=== PATIENT | female | born 1950 | race Caucasian/White ===

== ENCOUNTER → 2017-06-26 11:56 | Outpatient (REF) | payer MEDICARE, MEDICAID, SELFPAY ==
[2017-06-26 18:18] LABS: Albumin Level 3.8 gm/dL (3.4-5.0); Blood Urea Nitrogen 18 mg/dL (7-18); Calcium 9.1 mg/dL (8.5-10.1); Carbon Dioxide 30 mmol/L (21.0-32.0); Chloride 103 mmol/L (98-107); Creatinine,Serum 1.24 mg/dL (0.55-1.02); Estimated Glomerular Filt Rate 43 ml/min (>60); GFR (African American) 52 ML/MIN (>60); Glucose 140 mg/dL (74-106)
[2017-06-26 18:30] LABS: Basophils # 0.1 K/mm3 (0-0.2); Basophils % 0.8 % (0.1-2.0); Eosinophils # 0.2 K/mm3 (0.0-0.4); Eosinophils % 2.5 % (0.1-12.0); Hematocrit 44.7 % (37.0-47.0); Hemoglobin 13.8 g/dL (12.2-16.2); Lymphocytes # 2.5 K/mm3 (0.7-4.5); Mean Corpuscular HGB Conc 30.8 g/dL (31.8-35.4); Mean Corpuscular Hemoglobin 30.1 pg (27.0-31.2); Mean Corpuscular Volume 97.6 fl (81-99); Mean Platelet Volume 10.4 fl (7.4-10.4); Monocytes # 0.5 K/mm3 (0.1-1.0); Monocytes % 6.1 % (1.7-9.3); Neutrophils # 5.3 K/mm3 (1.8-7.8); Neutrophils % 61.5 % (37.0-80.0); Platelet Count 336 K/mm3 (142-424); Red Blood Count 4.58 M/mm3 (4.20-5.40); Red Cell Distribution Width 13.5 % (11.5-17.5); White Blood Count 8.6 K/mm3 (4.8-10.8)
[2017-06-26 19:06] LABS: Alanine Aminotransferase 28 U/L (12-78); Albumin/Globulin Ratio 1.1 (1.1-1.8); Alkaline Phosphatase 125 U/L (46-116); Anion Gap 11.2 mEq/L (5-15); Bilirubin,Total 0.3 mg/dL (0.2-1.0); Free T4 (Free Thyroxine) 0.78 ng/dl (0.76-1.46); Globulin 3.6 gm/dl (1.3-3.2); Sodium 140 mmol/L (136-145); Thyroid Stimulating Hormone 1.99 uIU/ml (0.358-3.740); Total Protein,Serum 7.4 gm/dL (6.4-8.2)
[2017-06-26 19:08] LABS: Aspartate Amino Transferase 20 U/L (15-37); Potassium 4.2 mmoL/L (3.5-5.1)
== END ==
LOC: LAB 11:56
PROVIDERS: Visit Provider Emergency Medicine
DX: N39.0 Urinary tract infection, site not specified (principal); F41.9 Anxiety disorder, unspecified
CPT/HCPCS: 80053; 84439; 84443; 85025; 87086

== ENCOUNTER → 2017-07-17 15:59 | Outpatient (CLI) | payer MEDICARE, MEDICAID, SELFPAY | PROVIDERS: Visit Provider Nurse Practitioner Family | DX: N39.0 Urinary tract infection, site not specified (principal) | CPT/HCPCS: 87086 ==

== ENCOUNTER → 2017-08-04 08:27 | Outpatient (CLI) | payer MEDICARE, MEDICAID, SELFPAY ==
--- NOTE | 2017-08-04 08:27 | XR_ITS ---
XR foot wt bearing RT 3V HISTORY: ITS.REASON: foot pain ORDERING PHYSICIAN: Ev Rae DPM PATIENT AGE: 66 years COMPARISON: 12/08/2016 FINDINGS: No fracture or dislocation. No lytic or blastic change. There is normal mineralization.. There are mild osteoarthritic changes of the first metatarsophalangeal joint. This is not significant changed. There is a small calcaneal spur . Previously there was decreased density at the tip of the spur which is improved on today's exam. There is normal alignment IMPRESSION: Mild osteoarthritis at the first metatarsophalangeal joint.
--- NOTE | 2017-08-04 08:27 | XR_ITS ---
XR foot wt bearing LT 3V HISTORY: Follow-up surgery, foot pain ITS.REASON: foot pain ORDERING PHYSICIAN: Ev Rae DPM PATIENT AGE: 66 years COMPARISON: 12/08/2016 FINDINGS: There is been prior osteotomy at the first metatarsophalangeal joint with joint replacement at the first metatarsophalangeal joint. There remains good alignment. There is bandage artifact present. No acute fracture or dislocation. No lytic or blastic change. IMPRESSION: Overall no change status post first metatarsophalangeal joint replacement with osteotomy.
== END ==
PROVIDERS: Visit Provider Podiatrist
DX: M79.673 Pain in unspecified foot (principal)
CPT/HCPCS: 73630

== ENCOUNTER → 2017-09-03 09:00 | Outpatient (CLI) | payer MEDICARE, MEDICAID, SELFPAY ==
--- NOTE | 2017-09-03 09:27 | NVE_ITS ---
Venous Exam Indications: 729.5 Pain in limb. IMPRESSIONS 1. There is no evidence of significant Reflux. 2. No evidence of deep or superficial vein thrombosis involving the left lower extremity History: Left lower extremity pain. Swelling of the left lower extremity. Risk factors: Hypertension. Obese. Patient states no recent trauma. Broke left hallux 4 years ago resulting in surgery. Has had pain there since. Todays pain radiates up the entire leg to include the thigh. Left lower extremity venous duplex evaluation. Doppler flow study including spectral analysis, color and morton scale imaging. Location: Vascular laboratory. Patient status: Outpatient. CRITICAL FINDINGS - Reported to: [facility] - Read back and verified. - 09/03/17 - 9:50 - LLE negative for DVT or SVT Tables: Venous flow and imaging: + +-------+ + Location Overall Flow properties + +-------+ + Left common femoral Patent Normal phasicity; spontaneous; normal augmentation; compressible + +-------+ + Left saphenofemoral junction Patent Compressible + +-------+ + Left profunda femoral Patent Compressible + +-------+ + Left femoral Patent Normal phasicity; spontaneous; normal augmentation; compressible + +-------+ + Left greater saphenous Patent Normal phasicity; spontaneous; normal augmentation; compressible + +-------+ + Left popliteal Patent Normal phasicity; spontaneous; normal augmentation; compressible + +-------+ + Left posterior tibial Patent Compressible + +-------+ + Left peroneal Patent Compressible + +-------+ + Left gastrocnemius Patent Compressible + +-------+ + Left soleal Patent Compressible + +-------+ + (Report amended ) Electronically signed by: Samy Tadeo [id number]
[2017-09-03 18:57] LABS: Basophils # 0.1 K/mm3 (0-0.2); Basophils % 1.2 % (0.1-2.0); Eosinophils # 0.2 K/mm3 (0.0-0.4); Eosinophils % 2.8 % (0.1-12.0); Hematocrit 46.8 % (37.0-47.0); Hemoglobin 14.1 g/dL (12.2-16.2); Lymphocytes % 30.3 K/mm3 (10-50); Mean Corpuscular HGB Conc 30.1 g/dL (31.8-35.4); Mean Corpuscular Hemoglobin 29.4 pg (27.0-31.2); Mean Corpuscular Volume 97.6 fl (81-99); Monocytes # 0.4 K/mm3 (0.1-1.0); Neutrophils % 59.5 % (37.0-80.0); Platelet Count 317 K/mm3 (142-424); Red Cell Distribution Width 12.9 % (11.5-17.5); White Blood Count 6.7 K/mm3 (4.8-10.8)
[2017-09-03 19:04] LABS: Alanine Aminotransferase 25 U/L (12-78); Albumin Level 3.9 gm/dL (3.4-5.0); Albumin/Globulin Ratio 1.1 (1.1-1.8); Alkaline Phosphatase 111 U/L (46-116); Anion Gap 12.2 mEq/L (5-15); Aspartate Amino Transferase 17 U/L (15-37); Bilirubin,Total 0.6 mg/dL (0.2-1.0); Blood Urea Nitrogen 16 mg/dL (7-18); Calcium 9.5 mg/dL (8.5-10.1); Carbon Dioxide 32 mmol/L (21.0-32.0); Chloride 102 mmol/L (98-107); Chol/HDL Ratio 4.2 (1-3.5); Cholesterol 214 mg/dL (140-200); Creatinine,Serum 0.96 mg/dL (0.55-1.02); Estimated Glomerular Filt Rate 58 ml/min (>60); Free T4 (Free Thyroxine) 0.84 ng/dl (0.76-1.46); GFR (African American) 70 ML/MIN (>60); Globulin 3.5 gm/dl (1.3-3.2); Glucose 133 mg/dL (74-106); HDL Cholesterol 51 mg/dL (29-89); LDL Cholesterol 84 mg/dL (0-130); Potassium 4.2 mmoL/L (3.5-5.1); Sodium 142 mmol/L (136-145); Thyroid Stimulating Hormone 2.38 uIU/ml (0.358-3.740); Total Protein,Serum 7.4 gm/dL (6.4-8.2); Triglycerides 393 mg/dL (30-200); VLDL Cholesterol 79 mg/dL (0-40)
[2017-09-07 10:12] LABS: Neisseria gonorrhoeae, NAA Negative
[2017-09-07 10:20] LABS: HIV Screen 4th Generation wRfx Non-reactive
[2017-09-07 10:22] LABS: Hep A Ab, IgM Negative; Hepatitis B Surface Antigen Negative
[2017-09-07 10:23] LABS: Hepatitis B Core Antibody IgM Negative
[2017-09-07 10:25] LABS: Hepatitis C Antibody 0.8
[2017-09-07 10:26] LABS: Rapid Plasma Reagin Ab Titer Non-Reactive
== END ==
PROVIDERS: Nurse Practitioner Family; PCP Emergency Medicine; Visit Provider Podiatrist
DX: R53.83 Other fatigue (principal); M54.2 Cervicalgia; I10 Essential (primary) hypertension; F41.9 Anxiety disorder, unspecified; N76.0 Acute vaginitis; M79.662 Pain in left lower leg; Z11.4 Encounter for screening for human immunodeficiency virus [HIV]
CPT/HCPCS: 80053; 80061; 80074; 82652; 84439; 84443; 85025; 86592; 86695; 86703; 86790; 87086; 87491; 87591; 93971; G0432

== ENCOUNTER → 2017-09-03 10:35 | Outpatient (CLI) | payer MEDICARE, MEDICAID, SELFPAY | PROVIDERS: Visit Provider Nurse Practitioner Family | DX: N76.0 Acute vaginitis (principal) | CPT/HCPCS: 80053; 80061; 80074; 82652; 84439; 84443; 85025; 86592; 86695; 86703; 86790; 87086; 87491; 87591; G0432 ==

== ENCOUNTER → 2018-04-13 09:34 | Outpatient (CLI) | payer MEDICARE, MEDICAID, SELFPAY ==
--- NOTE | 2018-04-13 10:40 | CA_ITS ---
PROCEDURE: 2-D M-mode and color Doppler study INDICATIONS FOR THE TEST: Chest pain+ COPD Heart Murmur Tobacco Smoking Palpitations Fatigue Syncope Edema+ Hypertension Diabetes Mellitus Rheumatic Fever SOB+ZAMORA+Obesity+Hyperlipidemia+ Family History HD Additional History CP PATIENT INFORMATION HEIGHT: 63 WEIGHT:208 GENDER: Female B/P:153/100 2-D/M-MODE INTERPRETATION: 2-D MEASUREMENTS OBSERVED VALUES IN CMS Right Ventricular Dimension (RVDd) 1.9 Interventricular Septum (Thickness)(IVsd) 1.4 Left Ventricular Internal Dimensions(LVIDd) 5.7 Left Ventricular Posterior Wall (Thickness)(LVPWd) 0.8 Aortic Root 3.0 Aortic Cusp Separation 1.9 Left Atrial Dimensions (LAD) 4.2 2D 1. Left atrium is mildly enlarged, left ventricle is normal size, mild concentric left ventricular hypertrophy, visually estimated ejection fraction of 55% with no regional wall motion abnormality. 2. The right atrium and right ventricle are normal size and contractility. 3. The aortic valve is thickened and calcified leaflet continue to display mobility. 4. The mitral and tricuspid valve leaflets are minimally thickened. 5. The pulmonic valve is poorly visualized. 6. No significant pericardial effusion noted. DOPPLER INTERROGATION: Doppler interrogation of the aortic, mitral and tricuspid valvular presence of mild mitral and tricuspid regurgitation, tricuspid regurgitation jet velocity is inadequate for calculation of the right ventricular systolic pressure, grade 1 diastolic dysfunction seen with tissue Doppler evidence of raised left atrial pressure. CONCLUSION: 1. Mildly enlarged left atrium, normal left ventricular size, mild concentric left ventricular hypertrophy, visually estimated ejection fraction 55% with no regional wall motion abnormality, grade 1 diastolic dysfunction seen with tissue Doppler evidence of raised left atrial pressure. 2. Mild mitral and tricuspid regurgitation 3. No significant pericardial effusion noted.
== END ==
PROVIDERS: PCP Emergency Medicine; Visit Provider Internal Medicine Cardiovascular Disease
DX: R06.09 Other forms of dyspnea; I10 Essential (primary) hypertension; E78.5 Hyperlipidemia, unspecified; Z82.49 Family history of ischemic heart disease and other diseases of the circulatory system
CPT/HCPCS: 93306

== ENCOUNTER → 2018-04-19 06:21 | Outpatient (CLI) | payer MEDICARE, MEDICAID, SELFPAY ==
--- NOTE | 2018-04-19 06:23 | NM_ITS ---
History and Indications: Hypertension, hyperlipidemia, family history, chest pain and shortness of breath Procedure: Patient received a 0.4 mg of intravenous Lexiscan, resting heart rate was 63 bpm resting blood pressure 163/95, Lexiscan maximum heart rate achieved was 103 bpm which is less than 85% of the maximum predicted heart rate and a blood pressure was 146/77. With Lexiscan patient complained of chest pain. Electrocardiogram: Resting echocardiogram showed sinus rhythm nonspecific ST-T changes, with Lexiscan there is less than 1.[address] segment depression noted from the baseline EKG. The EKG portion of the Lexiscan Myoview is nondiagnostic. Cardiac stress and resting SPECT images: Cardiac stress and resting SPECT images were obtained using technetium 99 Myoview 31.3 mCi stress and 10.4 mCi at rest. Gated SPECT further analysis of segmental wall motion and calculation of the ejection fraction also done. Cardiac stress and rest SPECT images show a mild fixed defect in the anterior wall with normal contractility in the gated SPECT is likely secondary to soft tissue attenuation, no reversible ischemia seen. Computer derived ejection fraction is over 65 percent with no regional wall motion abnormality, right ventricle is normal size and contractility. Conclusion: 1. The EKG portion of the Lexiscan Myoview is nondiagnostic. 2. No scintigraphic evidence of reversible ischemia seen, computer derived ejection fraction is 65% with no regional wall motion abnormality, right ventricle is normal size and contractility. 3. Normal Lexiscan Myoview study.
--- NOTE | 2018-04-19 07:44 | HMH.ITSHM ---
Current Home Medications as stated by this patient Gabrielle Sepulveda or advertising sales representative. []GABAPENTIN OXYCODONE OMEPRAZOLE METOPROLOL LOSARTAN LORATADINE NASAL SPRAY BUPROPION ATORVASTATIN
== END ==
PROVIDERS: PCP Emergency Medicine; Visit Provider Internal Medicine Cardiovascular Disease
DX: E78.5 Hyperlipidemia, unspecified (principal); G47.9 Sleep disorder, unspecified; I10 Essential (primary) hypertension; M79.601 Pain in right arm; M79.602 Pain in left arm; R06.00 Dyspnea, unspecified; R06.83 Snoring; R40.0 Somnolence; R60.9 Edema, unspecified; Z82.49 Family history of ischemic heart disease and other diseases of the circulatory system; Z87.891 Personal history of nicotine dependence; R07.9 Chest pain, unspecified
CPT/HCPCS: 78452; 93017; A9502; J2785

== ENCOUNTER → 2018-12-06 11:27 | Outpatient (CLI) | payer MEDICARE, MEDICAID, SELFPAY ==
--- NOTE | 2018-12-06 11:31 | XR_ITS ---
PROCEDURE: XR CHEST 2V CLINICAL HISTORY: cough COMPARISON: CXR CHEST(2 VIEWS-NOT PORTABLE) from 12/04/2015 CXR CHEST(2 VIEWS-NOT PORTABLE) from 09/24/2016 FINDINGS: The cardiomediastinal silhouette and pulmonary vascularity are within normal limits. The lungs are clear without infiltrates, suspicious nodules, or pleural effusions. No acute bony abnormalities. IMPRESSION: No acute findings. Dictated by: Samy Tadeo MD 12/06/2018 12:42 Electronically signed by Samy Tadeo MD in [place] 12/06/2018 12:42
== END ==
PROVIDERS: PCP Emergency Medicine; Visit Provider Nurse Practitioner Family
DX: R05 Cough (principal); R06.2 Wheezing; R09.89 Other specified symptoms and signs involving the circulatory and respiratory systems
CPT/HCPCS: 71046

== ENCOUNTER → 2019-02-14 17:09 | Outpatient (CLI) | payer MEDICARE, MEDICAID, SELFPAY ==
[2019-02-14 17:59] LABS: Basophils # 0.1 K/mm3 (0-0.2); Basophils % 1.1 % (0.1-2.0); Eosinophils # 0.2 K/mm3 (0.0-0.4); Eosinophils % 3.1 % (0.1-12.0); Hematocrit 45.5 % (37.0-47.0); Hemoglobin 14.3 g/dL (12.2-16.2); Lymphocytes # 2.3 K/mm3 (0.7-4.5); Lymphocytes % 29.8 % (10-50); Mean Corpuscular HGB Conc 31.4 g/dL (31.8-35.4); Mean Corpuscular Hemoglobin 31.1 pg (27.0-31.2); Mean Corpuscular Volume 98.8 fl (81-99); Mean Platelet Volume 9.5 fl (7.4-10.4); Monocytes # 0.5 K/mm3 (0.1-1.0); Monocytes % 6.3 % (1.7-9.3); Neutrophils # 4.5 K/mm3 (1.8-7.8); Neutrophils % 59.7 % (37.0-80.0); Platelet Count 328 K/mm3 (142-424); Red Cell Distribution Width 13.6 % (11.5-17.5); White Blood Count 7.5 K/mm3 (4.8-10.8)
[2019-02-14 18:28] LABS: Alanine Aminotransferase 21 U/L (12-78); Albumin Level 3.9 gm/dL (3.4-5.0); Albumin/Globulin Ratio 1.1 (1.1-1.8); Alkaline Phosphatase 116 U/L (46-116); Anion Gap 12.6 mEq/L (5-15); Aspartate Amino Transferase 15 U/L (15-37); Bilirubin,Total 0.3 mg/dL (0.2-1.0); Blood Urea Nitrogen 12 mg/dL (7-18); Calcium 8.9 mg/dL (8.5-10.1); Carbon Dioxide 26 mmol/L (21.0-32.0); Chloride 104 mmol/L (98-107); Chol/HDL Ratio 3.7 (1-3.5); Cholesterol 266 mg/dL (140-200); Estimated Glomerular Filt Rate 49 ml/min (>60); GFR (African American) 60 ML/MIN (>60); Globulin 3.4 gm/dl (1.3-3.2); Glucose 118 mg/dL (74-106); HDL Cholesterol 72 mg/dL (29-89); LDL Cholesterol 137 mg/dL (0-130); Potassium 3.6 mmoL/L (3.5-5.1); Sodium 139 mmol/L (136-145); T4 (Thyroxine) 7.9 ug/dl (4.7-13.3); Thyroid Stimulating Hormone 1.53 uIU/ml (0.358-3.740); Total Protein,Serum 7.3 gm/dL (6.4-8.2); Triglycerides 286 mg/dL (30-200); VLDL Cholesterol 57 mg/dL (0-40)
[2019-02-14 21:55] LABS: Hemoglobin A1C 6.1 % (0.0-7.0)
[2019-02-16 11:45] LABS: Vitamin D 25 Hydroxy 10.3 ng/mL (30.0-100.0)
== END ==
PROVIDERS: Visit Provider Emergency Medicine
DX: M54.9 Dorsalgia, unspecified (principal); R68.2 Dry mouth, unspecified; F41.9 Anxiety disorder, unspecified; I10 Essential (primary) hypertension; E11.9 Type 2 diabetes mellitus without complications; E55.9 Vitamin D deficiency, unspecified
CPT/HCPCS: 80053; 80061; 82652; 83036; 84436; 84443; 85025

== ENCOUNTER → 2019-04-04 16:56 | Outpatient (CLI) | payer MEDICARE, MEDICAID, SELFPAY ==
[2019-04-04 18:01] LABS: Amphetamine/Metha Screen,Urine Negative ng/mL (<1000); Barbiturates Screen,Urine Negative ng/mL (<200); Benzodiazepines Screen,Urine Negative ng/mL (<200); Cannabinoid Screen,Urine Negative ng/mL (<50); Cocaine Screen,Urine Negative ng/mL (<300); Methadone Screen,Urine Negative ng/mL (<300); Opiate Screen,Urine Positive ng/mL (<300); Phencyclidine Screen,Urine Negative ng/mL (<25)
[2019-04-11 09:37] LABS: Oxycodone (GC/MS) 1672 ng/mL (Cutoff=100)
[2019-04-13 17:35] LABS: Opiates Negative (Cutoff=100); Oxymorphone (GC/MS) 2436 ng/mL (Cutoff=100)
== END ==
PROVIDERS: Visit Provider Emergency Medicine
DX: M54.16 Radiculopathy, lumbar region (principal); Z79.899 Other long term (current) drug therapy
CPT/HCPCS: 80305; 80361; 80365; G0480

== ENCOUNTER → 2019-04-27 09:01 | Outpatient (CLI) | payer MEDICARE, MEDICAID, SELFPAY ==
--- NOTE | 2019-04-27 09:01 | MM_ITS ---
PROCEDURE: MM DIG SCREENING MAMM BI W/CAD CLINICAL INDICATION: screening There is a history of breast cancer patient's 2 sisters. COMPARISON: DIG MAMMO BILAT SCREENING from 10/15/2011 DIG MAMMO BILAT SCREENING from 05/05/2013 [facility] DIG MAMM-SCREEN MARY from 07/30/2015 TECHNIQUE: Standard CC and MLO images and 3D Tomosynthesis was obtained. R2 CAD reviewed. FINDINGS: The breasts are composed primarily of fat with minimal scattered fibroglandular densities in the subareolar regions bilaterally. There are few scattered benign-appearing microcalcifications in each breast. Jerry images were reviewed showing no suspicious abnormality. There are no suspicious microcalcifications. IMPRESSION: Fibrofatty parenchyma with no suspicious lesions seen BI-RAD Category: 2 Benign Finding(s) FOLLOW-UP: 1YR 1 Year Follow-up (A letter has been sent to the patient regarding results of the study.) Dictated by: Dr. Uriel Ngo MD 04/29/2019 08:[address] Uriel Ngo MD in [place] 04/29/2019 08:54
== END ==
PROVIDERS: PCP Emergency Medicine; Visit Provider Emergency Medicine
DX: Z12.31 Encounter for screening mammogram for malignant neoplasm of breast (principal)
CPT/HCPCS: 77063; 77067

== ENCOUNTER → 2019-06-10 09:18 | Outpatient (CLI) | payer MEDICARE, MEDICAID, SELFPAY ==
--- NOTE | 2019-06-10 09:18 | MR_ITS ---
PROCEDURE: MR LUMBAR SPINE WO CON CLINICAL INDICATION: back pain Low back pain, left leg pain, bilateral feet numbness and burning COMPARISON: LIAISON ENGINEER/O MRI-L-SPINE W/O from 06/22/2015 TECHNIQUE: Standard multiplanar multiecho sequences are performed without contrast. 3-D MIP and myelographic images are also rendered and reviewed FINDINGS: There is normal alignment. The spinal cord ends at the T12 level. There is a small left paracentral/foraminal disc protrusion at T11-T12 with minimal foraminal narrowing. No cord impingement. T12-L1, L1-L2 have an unremarkable appearance. L2-L3: Minimal bulging disc with mild facet and ligamentum hypertrophy with mild bilateral lateral recess narrowing not significantly changed. L3-L4: Mild facet ligamentum hypertrophy with mild bilateral lateral recess narrowing unchanged. L4-5: Unremarkable. L5-S1: Unremarkable. IMPRESSION: 1. Overall no significant change from 06/22/2015. 2. Minimal left paracentral disc protrusion at T11-T12 without impingement upon the cord with mild foraminal narrowing. 3. Other mild degenerative changes with mild facet ligamentum hypertrophy with mild bilateral lateral recess narrowing at L2-L3 and L3-L4. 4. No disc herniation or canal stenosis Dictated by: Samy Tadeo MD 06/10/2019 14:54 Electronically signed by Samy Tadeo MD in [place] 06/10/2019 14:54
== END ==
PROVIDERS: PCP Emergency Medicine; Visit Provider Emergency Medicine
DX: M54.16 Radiculopathy, lumbar region (principal); M54.5 Low back pain
CPT/HCPCS: 72148; 76376

== ENCOUNTER → 2019-06-16 18:55 | Outpatient (CLI) | payer MEDICARE, MEDICAID, SELFPAY | PROVIDERS: PCP Emergency Medicine; Visit Provider Emergency Medicine | DX: G47.33 Obstructive sleep apnea (adult) (pediatric) (principal); I10 Essential (primary) hypertension; R40.0 Somnolence; R06.83 Snoring; E66.9 Obesity, unspecified; Z87.891 Personal history of nicotine dependence | CPT/HCPCS: 95811 ==

== ENCOUNTER → 2019-11-16 11:41 | Outpatient (CLI) | payer MEDICARE, MEDICAID, SELFPAY ==
[2019-11-16 22:57] LABS: Coronavirus 19 IgG Antibody Negative (Negative); Coronavirus 19 IgM Antibody Negative (Negative)
== END ==
PROVIDERS: Visit Provider Surgery
DX: Z01.818 Encounter for other preprocedural examination (principal); Z12.11 Encounter for screening for malignant neoplasm of colon
CPT/HCPCS: 36415; 86328

== ENCOUNTER 2019-11-17 06:10 | Day surgery (SDC) | payer MEDICARE, MEDICAID, SELFPAY ==
[2019-11-17 07:26] VITALS: BMI 35.8
[2019-11-17 07:30] VITALS: BP 178/95; PULSE 68; RESP 18; TEMP 36.6; O2SAT 99
[2019-11-17 08:42] VITALS: O2SAT 97
--- NOTE | 2019-11-17 08:47 | HMH.ANESCL ---
[facility] Anesthesia Checklist - Patient Identification Patient Identification: Arm Band, Verbal (Name & ) - Structural Data Admitted From: Home Planned Operative Procedure/s: Colonoscopy Consent for Planned Operative Procedure(s) Verified: Yes Verified Documents: Surgical Consent, History and Physical - NPO Status Verified Time NPO: 00:00 - Chart Verification Results Verified: None - Additional verifications Anesthesia Reactions: Yes (PONV) - Airway Assessment C-Spine Mobility Assessed: Yes TMJ Mobility Assessed: Yes Dentition: Edentulous - Neurological Assessment Level of Consciousness: Awake, Alert, Appropriate, Follows Commands Hx Seizures: No Numbness or tingling in extremities: No - Anesthesia Plan Anesthesia Risk discussed: Yes Anesthesia Plan: Verified ASA Class: III Anesthesia Type: MAC [facility] History I have reviewed the patient's past medical history: Yes Medical History: Reports:: Anxiety, Depression, Gastroesophageal Reflux Disease(GERD), Hiatal Hernia, Hyperlipidemia, Hypertension, Urinary Tract Infection Denies:: Internal Pacemaker, Seizures *Have you ever received a pneumonia vaccine?: Yes *Have you received a flu vaccine this season?: Yes Other Medical History: Reports: Other Comment:: obesity, chronic back pain, CHRISTA Anesthesia experience/problems:: hx of PONV Laterality Cases: Bilateral: Tonsillectomy Other Surgeries: Yes: Cholecystectomy, Colonoscopy, Hysterectomy-Total, Tubal Ligation, Other. No: Cancer Surgery, Pacemaker Amputation: No Fractures: No - *Social History Smoking Status: Former smoker Alcohol Intake: never Alcohol Intake Frequency:: other Substance Use Type: denies use *Occupational Status:: disabled Housing: house *Travel in the last 8 weeks: None (NA) - Psychiatric History Pschychiatric History:: Reports:: Anxiety, Depression Family Hx:: Heart Attack, Diabetes, Cancer, Coronary Artery Disease
[2019-11-17 09:16] VITALS: BP 85/58; PULSE 88; RESP 16; TEMP 36.4; O2SAT 93
--- NOTE | 2019-11-17 09:16 | HMH.SCOPE ---
- Procedure: Date: 11/17/19 Patient Date of :: 1950 Procedure Performed:: Colonoscopy with polypectomy by means other than snare Indications:: History of colon polyps Performing Provider:: Keith Holden MD Referring Provider:: . Sedation:: Monitored anesthesia care Procedure:: After informed consent was obtained the patient was taken to the endoscopy suite. Sedation ensued after the patient was transferred to the left lateral decubitus position. Pulse, blood pressure, and oxygen saturation were monitored throughout the procedure. Digital rectal exam revealed no significant abnormality. The colonoscope was placed in position. The entire colon was evaluated. The colonoscope was carefully removed and the patient was transferred to recovery in stable condition. Please see findings and specimens below for detail. Findings:: Bowel preparation moderate to poor Hemorrhoidal tags/cushions Mild scattered diverticulosis Ileocecal valve lobulation (possible submucosal lipoma) Polyp at 25 cm Specimens:: Multiple biopsies of lobulated ileocecal valve lobulation (possible submucosal lipoma) Polyp at 25 cm Recommendations:: Follow-up pathology Likely repeat colonoscopy in 1-2 years secondary to moderate to poor bowel preparation. Complications:: No immediate Estimated blood obtained (mL): 1
[2019-11-17 09:26] VITALS: BP 102/60; PULSE 84; RESP 16; O2SAT 95
--- NOTE | 2019-11-17 09:31 | SUR.PHASEII ---
0916- patient brought to post op with oral airway 0926- oral airway removed by patient at this time
[2019-11-17 09:36] VITALS: BP 109/69; PULSE 85; RESP 16; O2SAT 96
[2019-11-17 09:45] VITALS: BP 111/69; PULSE 82; RESP 16; TEMP 36.6; O2SAT 96
== END 2019-11-17 09:49 | disposition home or self-care (01) ==
LOC: OUTP 06:14
PROVIDERS: PCP Family Medicine; Visit Provider Surgery
PROC: 0DJD8ZZ Inspection of Lower Intestinal Tract, Via Natural or Artificial Opening Endoscopic (ICD-10-PCS; CPT 45380; principal; 2019-11-17 08:30)
DX: Z12.11 Encounter for screening for malignant neoplasm of colon (principal); K64.0 First degree hemorrhoids; K57.30 Diverticulosis of large intestine without perforation or abscess without bleeding; K63.5 Polyp of colon; K63.89 Other specified diseases of intestine; Z86.010 Personal history of colon polyps; F41.9 Anxiety disorder, unspecified; F32.9 Major depressive disorder, single episode, unspecified; K21.9 Gastro-esophageal reflux disease without esophagitis; E78.5 Hyperlipidemia, unspecified; I10 Essential (primary) hypertension; Z90.49 Acquired absence of other specified parts of digestive tract
CPT/HCPCS: 45380; 88305

== ENCOUNTER → 2019-12-09 17:05 | Outpatient (CLI) | payer MEDICARE, MEDICAID, SELFPAY ==
[2019-12-09 17:51] LABS: Basophils # 0.1 K/mm3 (0-0.2); Eosinophils # 0.2 K/mm3 (0.0-0.4); Hematocrit 42.4 % (37.0-47.0); Hemoglobin 13.9 g/dL (12.2-16.2); Lymphocytes # 2.7 K/mm3 (0.7-4.5); Lymphocytes % 37.5 % (10-50); Mean Corpuscular HGB Conc 32.8 g/dL (31.8-35.4); Mean Corpuscular Hemoglobin 31.7 pg (27.0-31.2); Mean Corpuscular Volume 96.8 fl (81-99); Mean Platelet Volume 9.8 fl (7.4-10.4); Monocytes # 0.5 K/mm3 (0.1-1.0); Monocytes % 6.8 % (1.7-9.3); Neutrophils # 3.8 K/mm3 (1.8-7.8); Neutrophils % 51.7 % (37.0-80.0); Platelet Count 300 K/mm3 (142-424); Red Blood Count 4.38 M/mm3 (4.20-5.40); Red Cell Distribution Width 13.5 % (11.5-17.5); White Blood Count 7.3 K/mm3 (4.8-10.8)
[2019-12-09 18:02] LABS: Alanine Aminotransferase 20 U/L (12-78); Albumin Level 4.3 g/dl (3.5-5.0); Albumin/Globulin Ratio 1.4 (1.1-1.8); Alkaline Phosphatase 126 U/L (38-126); Aspartate Amino Transferase 24 U/L (14-36); Bilirubin,Total 0.7 mg/dl (0.2-1.3); Blood Urea Nitrogen 13 mg/dl (7-17); Calcium 9.5 mg/dl (8.4-10.2); Carbon Dioxide 32 mmol/L (22.0-30.0); Chloride 102 mmol/L (98-107); Chol/HDL Ratio 3.1 (1-3.5); Cholesterol 180 mg/dl (140-200); Estimated Glomerular Filt Rate 55 ml/min (>60); GFR (African American) 67 ML/MIN (>60); Glucose 129 mg/dl (74-100); HDL Cholesterol 59 mg/dl (40-60); Sodium 138 mmol/L (136-145); Total Protein,Serum 7.3 g/dl (6.3-8.2)
[2019-12-09 18:13] LABS: Direct LDL Cholesterol 77.27 mg/dL (100-129)
[2019-12-09 18:18] LABS: Free T4 (Free Thyroxine) 0.86 ng/dl (0.78-2.19)
[2019-12-09 18:25] LABS: Triglycerides 557 mg/dl (30-150)
[2019-12-09 18:26] LABS: 25-OH Vitamin D, Total 41.9 ng/mL (30-100)
[2019-12-09 18:33] LABS: Thyroid Stimulating Hormone 3.44 uIU/mL (0.465-4.68)
== END ==
PROVIDERS: Visit Provider Emergency Medicine
DX: R60.9 Edema, unspecified (principal); E55.9 Vitamin D deficiency, unspecified; R09.89 Other specified symptoms and signs involving the circulatory and respiratory systems; E78.5 Hyperlipidemia, unspecified; Z79.899 Other long term (current) drug therapy
CPT/HCPCS: 80053; 80061; 82306; 84439; 84443; 85025

== ENCOUNTER → 2020-01-04 10:26 | Outpatient (CLI) | payer MEDICARE, MEDICAID, SELFPAY ==
[2020-01-04 17:14] LABS: Hemoglobin A1C 5.8 % (4.0-6.0)
== END ==
PROVIDERS: Visit Provider Emergency Medicine
DX: E11.9 Type 2 diabetes mellitus without complications (principal)
CPT/HCPCS: 36415; 83036

== ENCOUNTER 2020-02-06 12:04 | Emergency (ER) | payer MEDICARE, MEDICAID, SELFPAY ==
[2020-02-06 12:06] VITALS: BP 140/80; PULSE 61; RESP 16; TEMP 37.2; O2SAT 98; BMI 34.5
[2020-02-06 12:13] VITALS: BMI 29.2
[2020-02-06 12:23] LABS: Microscopic, Urine URINE MICROSCOPIC (MICROSCOPIC)
--- NOTE | 2020-02-06 12:23 | CT_ITS ---
PROCEDURE: CT ABDOMEN PELVIS W CON CLINICAL INDICATION: llq pain Left flank pain, left lower quadrant pain COMPARISON: CT ABDPELW CT ABD PELVIS W/ CONTRAST from 12/04/2015 TECHNIQUE: IV Contrast: 75ML Isovue 370 Oral Contrast None Axial images obtained with sagittal and coronal reformats. All CT scans at the facility use one or more dose reduction, viz: automated exposure control, ma/kV adjustment per patient size (including targeted exams where dose is matched to indication, i.e. head), or iterative reconstruction technique. FINDINGS: LOWER THORAX: Patchy density is present in the right lower lobe posteriorly consistent with an area of atelectasis or patchy infiltrate. ABDOMEN & PELVIS: There is mild fatty liver. There has been a prior cholecystectomy with biliary ectasia. Common bile duct measures up to 11 mm previously measuring 6 mm. There is mild thickening the wall of the stomach at the gastric antrum and pyloric region. The adrenal glands have an unremarkable appearance. There is a small exophytic right renal cyst at 8 mm. No renal or ureteral calculi. No hydronephrosis. The pancreas appears unremarkable. There is a small umbilical hernia containing fat. No evidence of appendicitis. There is diverticulosis of the sigmoid colon. There is some minimal distortion of the colon in the sigmoid colon and an area diverticulosis with some questionable minimal stranding of the pericolic fat. Mild diverticulitis is a consideration. No pelvic mass or abnormal fluid collection is evident. No acute bony findings evident. IMPRESSION: Colonic diverticulosis with possible mild diverticulitis in the sigmoid colon region. This is in the right lower pelvic area with some distortion of the colon at this region. Convalescent follow-up with colonoscopy or barium enema suggested. Mild thickening of the pyloric and antral region of the stomach which could be seen with gastritis. Dictated by: Samy Tadeo MD 02/06/2020 14:19 Samy Tadeo MD in [place] 02/06/2020 14:19
[2020-02-06 12:25] LABS: Appearance,Urine CLEAR (Clear); Bilirubin,Urine Negative (Negative); Blood, Urine Negative (Negative); Color,Urine YELLOW (Yellow); Glucose,Urine (UA) Negative (Negative); Ketones,Urine Negative (Negative); Leukocyte Esterase,Urine Negative (Negative); Nitrate,Urine Negative (Negative); PH,Urine 5.5 (5.0-8.5); Protein,Urine Negative (Negative); Specific Gravity, Urine >= 1.030 (1.005-1.030); Urobilinogen,Urine 0.2 EU/dl (0.2)
[2020-02-06 12:32] LABS: Basophils # 0.1 K/mm3 (0-0.2); Basophils % 1.1 % (0.1-2.0); Eosinophils # 0.2 K/mm3 (0.0-0.4); Eosinophils % 2.1 % (0.1-12.0); Hemoglobin 15.3 g/dL (12.2-16.2); Lymphocytes # 2.3 K/mm3 (0.7-4.5); Lymphocytes % 25.4 % (10-50); Mean Corpuscular HGB Conc 31.2 g/dL (31.8-35.4); Mean Corpuscular Hemoglobin 29.8 pg (27.0-31.2); Mean Corpuscular Volume 95.7 fl (81-99); Mean Platelet Volume 8.5 fl (7.4-10.4); Monocytes # 0.4 K/mm3 (0.1-1.0); Monocytes % 4.7 % (1.7-9.3); Neutrophils # 6.1 K/mm3 (1.8-7.8); Neutrophils % 66.7 % (37.0-80.0); Platelet Count 307 K/mm3 (142-424); Red Blood Count 5.12 M/mm3 (4.20-5.40); Red Cell Distribution Width 13.6 % (11.5-17.5); White Blood Count 9.1 K/mm3 (4.8-10.8)
[2020-02-06 12:35] LABS: Sodium 138 mmol/L (136-145)
[2020-02-06 12:36] LABS: Chloride 98 mmol/L (98-107)
[2020-02-06 12:37] LABS: Amylase 78 U/L (30-110)
[2020-02-06 12:38] LABS: Alanine Aminotransferase 17 U/L (12-78); Albumin Level 4.7 g/dl (3.5-5.0); Albumin/Globulin Ratio 1.3 (1.1-1.8); Alkaline Phosphatase 110 U/L (38-126); Aspartate Amino Transferase 26 U/L (14-36); Bilirubin,Total 0.8 mg/dl (0.2-1.3); Blood Urea Nitrogen 14 mg/dl (7-17); Calcium 9.6 mg/dl (8.4-10.2); Carbon Dioxide 33 mmol/L (22.0-30.0); Creatinine Clearance Estimated 65 mL/min (50-200); Estimated Glomerular Filt Rate 55 ml/min (>60); GFR (African American) 67 ML/MIN (>60); Globulin 3.6 g/dL (1.3-3.2); Glucose 126 mg/dl (74-100); Lipase 64 U/L (23-300); Total Protein,Serum 8.3 g/dl (6.3-8.2)
--- NOTE | 2020-02-06 12:41 | HMH.EDABDPAI ---
ED Disposition Clinical Impression: Diverticulitis Disposition: Home, Self-Care Condition on Discharge: Fair Instructions: DI for Acute Abdomen, DI for Diverticulitis Prescriptions: metroNIDAZOLE [Flagyl 500mg Tablet] 500 mg PO Q8H #21 tab Transmission Status: Pending to [facility] #[id number] levoFLOXacin [Levaquin 500mg tab] 500 mg PO DAILY #7 tab Transmission Status: Pending to [facility] #[id number] Referrals: El Maria MD [Primary Care Provider] - - Critical Care Critical Care Time: No Attestation: On 02/06/20, the high probability of a clinically significant, sudden or life threatening deterioration of the following system(s) required my full and direct attention, intervention and personal management. The time I documented below is in addition to time spent performing reported procedures but includes the following listed in this critical care notation. Medical Decision Making - Medical Records Medical records reviewed: Yes: I reviewed the patient's medical records. MR Comment: This is a 69-year-old female who was sent here by Dr. Maria; patient states that she has been having left-sided abdominal pain for the last 2 to 3 days she had nausea she went to Dr. Maria's office and he sent her over for further evaluation she did not vomit but did have nausea her past medical history significant for hypertension and hypercholesterolemia. Patient dependent her labs including CBC CMP and urinalysis are essentially normal CT of the abdomen and pelvis shows the following colonic diverticulosis with possible mild diverticulitis. Mild thickening of the pyloric and antral region of the stomach consistent with gastritis . Did speak back to Dr. Maria and he has advised to give patient Levaquin as well as flagyl. we will give her 1 dose here and will give a prescription for the same we will also give her a prescription for Zofran for nausea - [place] Inquiry Pt receiving controlled substance: No Vital Signs: 02/06/20 12:06 02/06/20 13:06 02/06/20 13:30 Temperature 99 F Temperature Source Oral Pulse Rate [Radial] 61 56 L 52 L Respiratory Rate 16 Blood Pressure [Right Arm] 140/80 114/57 L 119/53 L Blood Pressure Mean [Right Arm] 100 76 75 Blood Pressure Source [Right Arm] Automatic Cuff Automatic Cuff Blood Pressure Position [Right Arm] Sitting Sitting Sitting 02 Sat by Pulse Oximetry 98 100 100 Oxygen Delivery Method Room Air Room Air Room Air - Lab Data Lab results reviewed: Yes: I reviewed the patient's lab results. Lab Results 02/06/20 12:05: Urine Color Yellow, Urine Appearance Clear, Urine pH 5.5, Ur Specific [place] >= 1.030, Urine Protein Negative, Urine Glucose (UA) Negative, Urine Ketones Negative, Urine Blood Negative, Urine Nitrate Negative, Urine Bilirubin Negative, Urine Urobilinogen 0.2, Ur Leukocyte Esterase Negative, Urine RBC Occasional, Urine WBC 3-5, Ur Squamous Epith Cells 10-20, Urine Bacteria Trace 02/06/20 12:15: WBC 9.1, RBC 5.12, Hgb 15.3, Hct 49.0 H, MCV 95.7, MCH 29.8, MCHC 31.2 L, RDW 13.6, Plt Count 307, MPV 8.5, Neut % (Auto) 66.7, Lymph % (Auto) 25.4, Oliver % (Auto) 4.7, Eos % (Auto) 2.1, Baso % (Auto) 1.1, Neut # (Auto) 6.1, Lymph # (Auto) 2.3, Oliver # (Auto) 0.4, Eos # (Auto) 0.2, Baso # (Auto) 0.1 02/06/20 12:15: Sodium 138, Potassium 4.0, Chloride 98, Carbon Dioxide 33 H, Anion Gap 11.0, BUN 14, Creatinine 1.00, Estimated Creat Clear 65, Estimated GFR 55 L, Est GFR ( Amer) 67, Glucose 126 H, Calcium 9.6, Total Bilirubin 0.8, AST 26, ALT 17, Alkaline Phosphatase 110, Total Protein 8.3 H, Albumin 4.7, Globulin 3.6 H, Albumin/Globulin Ratio 1.3, Amylase 78, Lipase 64 Result diagrams: 02/06/20 12:15 02/06/20 12:15 Orders (Tests/Meds): ED MEDICATIONS Discontinued Medications Generic Name Dose Route Start Last Admin Trade Name Freq PRN Reason Stop Dose Admin Sodium Chloride 1,000 mls @ 999 mls/hr 02/06/20 13:00 02/06/20 12:30
[2020-02-06 12:49] LABS: Bacteria,Urine Trace /lpf; RBC,Urine Occasional #/hpf (0-3)
[2020-02-06 13:06] VITALS: BP 114/57; PULSE 56; O2SAT 100
[2020-02-06 13:30] VITALS: BP 119/53; PULSE 52; O2SAT 100
--- NOTE | 2020-02-06 13:43 | PC.NURSE ---
pt gone to radiology
--- NOTE | 2020-02-06 14:05 | PC.NURSE ---
pt returning from radiology
--- NOTE | 2020-02-06 14:36 | PC.NURSE ---
TIMA ARAMBULA speaking with Dr Maria at this time.
[2020-02-06 15:00] VITALS: BP 102/56; PULSE 60; O2SAT 100
[2020-02-06 15:30] VITALS: BP 113/77; PULSE 55; O2SAT 100
[2020-02-06 16:01] VITALS: BP 161/74; PULSE 78; RESP 16; TEMP 36.6; O2SAT 98
== END 2020-02-06 16:03 | disposition home or self-care (01) ==
PROVIDERS: Emergency Provider Emergency Medicine; PCP Emergency Medicine
DX: K57.92 Diverticulitis of intestine, part unspecified, without perforation or abscess without bleeding (principal); I10 Essential (primary) hypertension; E78.5 Hyperlipidemia, unspecified; F41.8 Other specified anxiety disorders; K21.9 Gastro-esophageal reflux disease without esophagitis; Z90.49 Acquired absence of other specified parts of digestive tract; Z90.710 Acquired absence of both cervix and uterus
CPT/HCPCS: 74177; 80053; 81001; 82150; 83690; 85025; 96365; 96375; 99284; J2405; Q9967

== ENCOUNTER → 2020-04-17 15:11 | Outpatient (CLI) | payer MEDICARE, MEDICAID, SELFPAY ==
--- NOTE | 2020-04-17 15:11 | US_ITS ---
PROCEDURE: US THYROID CLINICAL INDICATION: increased size on exam possible enlarged thyroid vague nodules COMPARISON: No exams were available for comparison FINDINGS: Right lobe: 1.3cm x 3.3cm x 1.4cm Left lobe: 0.9cm x 3.1cm x 1.5cm Isthmus: Mildly thickened at 4 mm Additional findings: There is diffuse heterogeneous echogenicity of the thyroid gland on both sides with ill-defined nodular areas bilaterally. On the right there is a 4 mm hypoechoic nodular region anteriorly in the mid aspect and an ill-defined 9 x 6 mm hypoechoic nodule posteriorly and a 3 mm hypoechoic nodule in the lower pole medially. In the lower pole there is a 12 x 8 mm hypoechoic nodule. On the left there is a 2 mm hypoechoic nodule in the upper pole, 5 mm hypoechoic nodule mid polar region, and a 7 x 4 mm hypoechoic nodule posteriorly IMPRESSION: Heterogeneous echogenicity of the thyroid gland with multiple small bilateral hypoechoic nodules which are low level of suspicion for malignancy TR level 3 or less less than 2.5 cm. Suggest 6-12 month follow-up to confirm stability Dictated by: Samy Tadeo MD 04/18/2020 09:18 Samy Tadeo MD in [place] 04/18/2020 09:18
== END ==
PROVIDERS: PCP Emergency Medicine; Visit Provider Emergency Medicine
DX: E04.9 Nontoxic goiter, unspecified (principal)
CPT/HCPCS: 76536

== ENCOUNTER → 2020-05-29 15:13 | Outpatient (CLI) | payer MEDICARE, MEDICAID, SELFPAY ==
[2020-05-29 16:01] LABS: Amphetamine/Metha Screen,Urine Negative ng/ml (<1000)
[2020-05-29 16:02] LABS: Barbiturates Screen,Urine Negative ng/ml (<200); Benzodiazepines Screen,Urine Negative ng/ml (<200)
[2020-05-29 16:03] LABS: Cannabinoid Screen,Urine Negative ng/ml (<50)
[2020-05-29 16:04] LABS: Cocaine Screen,Urine Negative ng/ml (<300); Methadone Screen,Urine Negative ng/ml (<300)
[2020-05-29 16:05] LABS: Opiate Screen,Urine Positive ng/ml (<300)
[2020-05-29 16:06] LABS: Phencyclidine Screen,Urine Negative ng/ml (<25)
== END ==
PROVIDERS: Visit Provider Emergency Medicine
DX: M47.816 Spondylosis without myelopathy or radiculopathy, lumbar region (principal); Z79.899 Other long term (current) drug therapy
CPT/HCPCS: 80305

== ENCOUNTER 2020-07-20 18:08 | Emergency (ER) | payer MEDICARE, MEDICAID, SELFPAY ==
[2020-07-20 18:17] VITALS: BP 167/91; PULSE 64; RESP 16; TEMP 36.7; O2SAT 99; BMI 37.6
--- NOTE | 2020-07-20 18:45 | HMH.EDUTC ---
[facility] Disposition Clinical Impression: Allergic reaction Qualifiers: Encounter type: initial encounter Qualified Code(s): T78.40XA - Allergy, unspecified, initial encounter Disposition: Home, Self-Care Condition on Discharge: Good Instructions: DI for General Allergic Reactions Additional Instructions: Try to avoid the offending substance. Take the medications as directed. Follow up with your primary care doctor. GO TO THE ER FOR ANY WORSENING SYMPTOMS OR CONCERNS Prescriptions: diphenhydrAMINE HCL [Diphenhydramine HCl] 25 mg PO Q6HP PRN #30 cap PRN Reason: Itching Transmission Status: Received by [facility] #[id number] methylPREDNISolone [Medrol] 4 mg PO DIRECTED 6 Days #21 tab.ds.pk Transmission Status: Received by [facility] #[id number] Referrals: El Maria MD [Primary Care Provider] - Time of Disposition: 19:05 Medical Decision Making - Medical Records Medical records reviewed: No: I reviewed the patient's medical records. - Clayton Inquiry Pt receiving controlled substance: No Vital Signs: 07/20/20 18:17 07/20/20 19:14 Temperature 98.1 F 98 F Temperature Source Oral Pulse Rate 70 Pulse Rate [Right] 64 Respiratory Rate 16 17 Blood Pressure 121/74 Blood Pressure [Right Arm] 167/91 H Blood Pressure Mean [Right Arm] 116 Blood Pressure Source [Right Arm] Automatic Cuff Blood Pressure Position [Right Arm] Sitting 02 Sat by Pulse Oximetry 99 Oxygen Delivery Method Room Air Orders (Tests/Meds): ED MEDICATIONS Discontinued Medications Generic Name Dose Route Start Last Admin Trade Name Freq PRN Reason Stop Dose Admin Methylprednisolone Sodium Succinate 125 mg 07/20/20 18:51 07/20/20 19:05 Methylprednisolone Sod Succ 125mg Vial IM 07/20/20 18:52 125 mg ONCE ONE Administration [facility] HPI - General Stated complaint: face swollow,red,rash,Possible reaction Time Seen by Provider: 07/20/20 18:45 Mode of Arrival: Ambulatory Source of Information: Patient Limitations: No Limitations Description of Symptoms (Recalled from Triage Doc. by RN): pt c/o swelling in her face, redness and itching. it has gone down some with benedryl. pt started having break outs on her face after starting a new facial cleanser about a year ago. it has progressively got worse. no other new soap, creams, make up or lotions...etc. HEENT Symptoms (Recalled from RN notes): No Resp Symptoms (Recalled from RN notes): No Skin Symptoms (Recalled from RN notes): Yes (swelling and itching of the face) MS Symptoms (Recalled from RN notes): No Functional Status (Recalled from RN notes): na - History of Present Illness Provider Complaint: She states that she has had facial redness and burning since this morning. She denies using any new products on her face. She denies starting any new medicines recently. - Related Data Home Medications Medication Instructions Recorded Confirmed Cetirizine HCl 10 mg PO DAILY 11/17/19 06/26/20 Ergocalciferol (Vitamin D2) 50,000 unit PO QWEEK 11/17/19 06/26/20 [Drisdol] Previous Rx's Medication Instructions Recorded atorvastatin 40 mg tablet See Rx Instructions .ROUTE 06/26/20 .COMPLEX #90 tab cholecalciferol (vitamin D3) 25 1,000 unit PO DAILY #90 cap 06/26/20 mcg (1,000 unit) capsule fluticasone propionate 50 1 spray INTRANASAL DAILY #16 g 06/26/20 mcg/actuation nasal spray,suspension gabapentin 600 mg tablet 600 mg PO QID #120 tab 06/26/20 losartan 50 mg-hydrochlorothiazide 1 tab PO DAILY #90 tab 06/26/20 12.5 mg tablet metoprolol succinate 25 mg See Rx Instructions .ROUTE 06/26/20 tablet,extended release 24 hr .COMPLEX #90 tab oxycodone-acetaminophen 7.5 mg-325 1 tab PO TID PRN #90 tab 06/26/20 mg tablet pantoprazole 40 mg tablet,delayed 40 mg PO DAILY #90 tab 06/26/20 release trazodone 50 mg tablet 50 mg PO DAILY #30 tab 06/26/20 diphenhydrAMINE HCL 25 mg PO Q6HP PRN #30 cap 07/20/20 [Diphenhydramine
[2020-07-20 19:14] VITALS: BP 121/74; PULSE 70; RESP 17; TEMP 36.6
== END 2020-07-20 19:30 | disposition home or self-care (01) ==
PROVIDERS: Emergency Provider Nurse Practitioner Family; PCP Emergency Medicine
DX: T78.40XA Allergy, unspecified, initial encounter (principal); I10 Essential (primary) hypertension; E78.5 Hyperlipidemia, unspecified; K21.9 Gastro-esophageal reflux disease without esophagitis; F41.8 Other specified anxiety disorders; Z87.891 Personal history of nicotine dependence; Z79.899 Other long term (current) drug therapy
CPT/HCPCS: G0463; 96372; 99202

== ENCOUNTER → 2020-08-21 17:54 | Outpatient (CLI) | payer MEDICARE, MEDICAID, SELFPAY ==
[2020-08-22 01:54] LABS: Amphetamine/Metha Screen,Urine Negative ng/ml (<1000)
[2020-08-22 01:55] LABS: Barbiturates Screen,Urine Negative ng/ml (<200); Benzodiazepines Screen,Urine Negative ng/ml (<200)
[2020-08-22 01:56] LABS: Cannabinoid Screen,Urine Negative ng/ml (<50)
[2020-08-22 01:57] LABS: Phencyclidine Screen,Urine Negative ng/ml (<25)
[2020-08-22 02:00] LABS: Opiate Screen,Urine Negative ng/ml (<300)
[2020-08-22 13:49] LABS: Cocaine Screen,Urine Negative ng/ml (<300); Methadone Screen,Urine Negative ng/ml (<300)
== END ==
PROVIDERS: Visit Provider Emergency Medicine
DX: E55.9 Vitamin D deficiency, unspecified (principal); E78.5 Hyperlipidemia, unspecified; G47.33 Obstructive sleep apnea (adult) (pediatric); G62.9 Polyneuropathy, unspecified; I10 Essential (primary) hypertension; M47.816 Spondylosis without myelopathy or radiculopathy, lumbar region; M54.9 Dorsalgia, unspecified; R73.03 Prediabetes
CPT/HCPCS: 80305

== ENCOUNTER → 2020-08-28 08:38 | Outpatient (CLI) | payer MEDICARE, MEDICAID, SELFPAY ==
--- NOTE | 2020-08-28 08:38 | MM_ITS ---
PROCEDURE INFORMATION: Exam: MG Screening 3D Mammography Exam date and time: 08/28/2020 8:38 AM Age: 69 years old Clinical indication: screening mammogram TECHNIQUE: Imaging protocol: Screening tomosynthesis and 2D mammography including computer-aided detection (CAD) when performed. COMPARISON: 1. MG MM DIG SCREENING MAMM BI W/CAD 04/27/2019 9:13 AM 2. MG DMSB DIG MAMM-SCREEN MARY 07/30/2015 9:29 AM FINDINGS: MAMMOGRAPHY: Breast composition: There are scattered areas of fibroglandular density. Mass: None. Architectural distortion: No new or suspicious architectural distortion. Calcifications: Stable benign-appearing calcifications are present. No new or suspicious cluster of microcalcifications have developed. Asymmetric density: No new or suspicious asymmetric density is present Skin thickening: None. Axillary adenopathy: None. IMPRESSION: No mammographic evidence of malignancy. Recommend annual screening mammography unless otherwise clinically indicated. ASSESSMENT: BI-RADS category 2: Benign
== END ==
PROVIDERS: PCP Emergency Medicine; Visit Provider Emergency Medicine
DX: Z12.31 Encounter for screening mammogram for malignant neoplasm of breast (principal)
CPT/HCPCS: 77063; 77067

== ENCOUNTER → 2020-11-13 17:08 | Outpatient (CLI) | payer MEDICARE, MEDICAID, SELFPAY ==
[2020-11-13 19:33] LABS: Benzodiazepines Screen,Urine Negative ng/ml (<200)
[2020-11-13 19:34] LABS: Amphetamine/Metha Screen,Urine Negative ng/ml (<1000); Barbiturates Screen,Urine Negative ng/ml (<200)
[2020-11-13 19:35] LABS: Cannabinoid Screen,Urine Negative ng/ml (<50)
[2020-11-13 19:36] LABS: Cocaine Screen,Urine Negative ng/ml (<300); Methadone Screen,Urine Negative ng/ml (<300)
[2020-11-13 19:37] LABS: Opiate Screen,Urine Negative ng/ml (<300); Phencyclidine Screen,Urine Negative ng/ml (<25)
== END ==
PROVIDERS: Visit Provider Emergency Medicine
DX: M47.816 Spondylosis without myelopathy or radiculopathy, lumbar region (principal)
CPT/HCPCS: 80305

== ENCOUNTER → 2021-01-09 14:56 | Outpatient (CLI) | payer MEDICARE, MEDICAID, SELFPAY ==
[2021-01-09 17:49] LABS: Amphetamine/Metha Screen,Urine Negative ng/ml (<1000)
[2021-01-09 17:50] LABS: Barbiturates Screen,Urine Negative ng/ml (<200)
[2021-01-09 17:51] LABS: Cannabinoid Screen,Urine Negative ng/ml (<50)
[2021-01-09 17:58] LABS: Cocaine Screen,Urine Negative ng/ml (<300)
[2021-01-09 17:59] LABS: Methadone Screen,Urine Negative ng/ml (<300)
[2021-01-09 18:00] LABS: Opiate Screen,Urine Negative ng/ml (<300); Phencyclidine Screen,Urine Negative ng/ml (<25)
[2021-01-09 18:07] LABS: Benzodiazepines Screen,Urine Negative ng/ml (<200)
== END ==
PROVIDERS: Visit Provider Emergency Medicine
DX: M47.816 Spondylosis without myelopathy or radiculopathy, lumbar region (principal)
CPT/HCPCS: 80305

== ENCOUNTER → 2021-02-01 08:57 | Outpatient (CLI) | payer MEDICARE, MEDICAID, SELFPAY ==
--- NOTE | 2021-02-01 09:08 | XR_ITS ---
PROCEDURE: XR KNEE LT 4V CLINICAL INDICATION: lt knee pain COMPARISON: No exams were available for comparison FINDINGS: No fracture or dislocation. No lytic or blastic change. There is normal mineralization. There is mild joint space narrowing medially. There is minimal spurring of the tibial spines. There is prominent narrowing of the patellofemoral space with spurring of the superior and inferior borders of the patella. There is no definite effusion. I see no fracture or loose body. Other findings:None. IMPRESSION: Mild degenerate changes as noted Dictated by: Dr. Uriel Ngo MD 02/01/2021 10:39 Dr. Uriel Ngo MD in [place] 02/01/2021 10:39
== END ==
PROVIDERS: PCP Emergency Medicine; Visit Provider Orthopaedic Surgery
DX: M25.562 Pain in left knee (principal)
CPT/HCPCS: 73564

== ENCOUNTER 2021-02-01 11:03 | Outpatient (RCR) | payer MEDICARE, MEDICAID, SELFPAY | END 2021-02-01 12:00 | disposition home or self-care (01) | LOC: PT 11:03 | PROVIDERS: Visit Provider Orthopaedic Surgery | DX: M25.562 Pain in left knee (principal) | CPT/HCPCS: 97760 ==

== ENCOUNTER 2021-02-12 12:55 | Outpatient (RCR) | payer MEDICARE, MEDICAID, SELFPAY ==
--- NOTE | 2021-02-12 13:57 | HMH.PTOPEV ---
PT Outpatient Evaluation Rehab PT Outpatient Evaluation Start: 02/12/21 13:02 Freq: Status: Active Protocol: Document 02/12/21 13:42 SUZETTE (Rec: 02/12/21 13:57 PHORNE [id number]) Electronically Signed By Jm Brooks, PT 02/12/21 13:42 Outpatient Therapy Subjective History Subjective History Pt is 70 yowf who presents with c/o pain in the L knee x ~ 5 yrs with insidious onset. She states, I fell about 10 years ago and hurt my big toe and its still got metal in it from that and its just terrible. Pt had X-rays performed which show L knee OA . Pt reports pain is worse with walking and stairs. She also reports hx of CLBP, anxiety, depression, HL, HTN, CHRISTA. Chief Complaint Pain,Stiff Symptom Type Ache Symptoms Relieved By Heat Symptoms Aggravated By Walking Prior Functional Limitations None Current Functional Limitations Standing,Walking,Stairs Symptom Description Intermittent,Activity Dependent Level of pain today (0-10) 5 Pain scale - at its worst (0-10) 10 Hip/Knee Eval Gait Observation General Gait Pattern Observation Antalgic Gait Palpation Tenderness left Knee Palpation Finding Tenderness Knee Palpation Overall Comment lateral knee jt and distal ITB MMT Hip Flexion Strength Grade 4 Good Hip Abduction Strength Grade 4 Good Knee Extension Strength Grade 5 Normal Knee Flexion Strength Grade 5 Normal ROM Knee Extension Active Range of Motion ( 0 degrees) Knee Flexion Active Range of Motion ( 0-124 degrees) Special Tests Sciatic Nerve Tension Test Negative Left,Negative Right Hip Scouring (Quadrant) Test Negative Left,Negative Right Knee Apley Compression Test Negative Left,Negative Right Knee Anterior Drawer Test Negative Left,Negative Right Knee Anterior Ivet Test Negative Left,Negative Right Knee Valgus Stress Test Negative Left,Negative Right Knee Varus Stress Test Negative Left,Negative Right Knee Noemi Test Negative Left,Negative Right Outpatient Therapy Assessment Impairments Problems/Impairmments Palpation Tenderness,Impaired Strength,Impaired Endurance, Impaired Gait Pattern,Impaired Walking,Impaired Standing, Impaired Stair Climbing,
== END 2021-02-12 12:59 | disposition home or self-care (01) ==
LOC: PT 12:55
PROVIDERS: PCP Emergency Medicine; Visit Provider Orthopaedic Surgery
DX: M25.562 Pain in left knee (principal)
CPT/HCPCS: 97010; 97014; 97110; 97163; G0283

== ENCOUNTER → 2021-03-08 14:05 | Outpatient (CLI) | payer MEDICARE, MEDICAID, SELFPAY ==
[2021-03-08 14:06] LABS: Coronavirus 19, PCR Not Detected (NotDetected); Influenza A, PCR Not Detected (NotDetected); Influenza B, PCR Not Detected (NotDetected)
[2021-03-08 14:35] LABS: Amphetamine/Metha Screen,Urine Negative ng/ml (<1000)
[2021-03-08 14:36] LABS: Barbiturates Screen,Urine Negative ng/ml (<200); Benzodiazepines Screen,Urine Negative ng/ml (<200)
[2021-03-08 14:37] LABS: Cannabinoid Screen,Urine Negative ng/ml (<50)
[2021-03-08 14:38] LABS: Cocaine Screen,Urine Negative ng/ml (<300); Methadone Screen,Urine Negative ng/ml (<300)
[2021-03-08 14:39] LABS: Opiate Screen,Urine Negative ng/ml (<300); Phencyclidine Screen,Urine Negative ng/ml (<25)
== END ==
PROVIDERS: Visit Provider Emergency Medicine
DX: R69 Illness, unspecified (principal); M47.816 Spondylosis without myelopathy or radiculopathy, lumbar region; Z20.822 Contact with and (suspected) exposure to COVID-19
CPT/HCPCS: 80305; C9803; U0003; U0005

== ENCOUNTER → 2021-05-08 16:00 | Outpatient (CLI) | payer MEDICARE, MEDICAID, SELFPAY ==
[2021-05-08 21:21] LABS: Amphetamine/Metha Screen,Urine Negative ng/ml (<1000)
[2021-05-08 21:22] LABS: Barbiturates Screen,Urine Negative ng/ml (<200); Benzodiazepines Screen,Urine Negative ng/ml (<200)
[2021-05-08 21:23] LABS: Cannabinoid Screen,Urine Negative ng/ml (<50)
[2021-05-08 21:24] LABS: Cocaine Screen,Urine Negative ng/ml (<300); Methadone Screen,Urine Negative ng/ml (<300)
[2021-05-08 21:25] LABS: Opiate Screen,Urine Negative ng/ml (<300)
[2021-05-08 21:26] LABS: Phencyclidine Screen,Urine Negative ng/ml (<25)
== END ==
PROVIDERS: Visit Provider Emergency Medicine
DX: M47.816 Spondylosis without myelopathy or radiculopathy, lumbar region (principal)
CPT/HCPCS: 80305

== ENCOUNTER 2021-05-24 15:14 | Emergency (ER) | payer MEDICARE, MEDICAID, SELFPAY ==
[2021-05-24 15:24] VITALS: BP 140/83; PULSE 80; RESP 20; TEMP 36.8; O2SAT 98; BMI 36.6
[2021-05-24 15:40] VITALS: BP 140/83; PULSE 80; RESP 20; TEMP 36.8; O2SAT 98; BMI 36.8
--- NOTE | 2021-05-24 16:10 | HMH.EDUTC ---
[facility] Disposition Clinical Impression: Sinusitis Qualifiers: Sinusitis location: unspecified location Chronicity: unspecified Qualified Code(s): J32.9 - Chronic sinusitis, unspecified Disposition: Home, Self-Care Condition on Discharge: Good Instructions: Sinusitis, DI for Sinusitis Additional Instructions: *Monitor Temp, Over the counter Motrin or Tylenol as directed/as needed Tylenol every 4 hours and Motrin every 6 hours (as long as your family doctor has told you that you can take it) for fever or pain. and straight to ER if unable to lower temp less than 101.0 after medication given *Warm salt water gargles may help to soothe the throat *Throat Lozenges *Warm fluids like tea with honey may help to soothe the throat *Sleep elevated *Humidifier/Vaporizer Take medication as prescribed FOllow up with Family Doctor if needed Follow up IMMEDIATELY for new or worsening symptoms or no Noticeable improvement over the next 48-72 hours. 911 for difficulty breathing or swallowing Prescriptions: Amoxicillin/Potassium Clav [Amox-Clav 875-125 mg Tablet] 1 tab PO BID #14 tab Transmission Status: Pending to [facility] #[id number] methylPREDNISolone [Medrol 4mg tab] 4 mg PO DIRECTED #21 tab Transmission Status: Pending to [facility] #[id number] Referrals: El Maria MD [Primary Care Provider] - As needed Time of Disposition: 16:29 Medical Decision Making - Clayton Inquiry Pt receiving controlled substance: No Clayton was queried for this patient: No Vital Signs: 05/24/21 15:24 05/24/21 15:40 Temperature 98.3 F 98.3 F Temperature Source Oral Oral Pulse Rate [Radial] 80 80 Respiratory Rate 20 20 Blood Pressure [Right Arm] 140/83 140/83 Blood Pressure Mean [Right Arm] 102 102 Blood Pressure Source [Right Arm] Automatic Cuff Blood Pressure Position [Right Arm] Sitting Sitting 02 Sat by Pulse Oximetry 98 98 Oxygen Delivery Method Room Air Room Air Medical Decision Narrative: Patient states that she has taken amoxicillin and Medrol in the past without complications or reactions [facility] HPI - General Stated complaint: cough,runny nose whezzing Time Seen by Provider: 05/24/21 16:17 Mode of Arrival: Ambulatory Source of Information: Patient Limitations: No Limitations Description of Symptoms (Recalled from Triage Doc. by RN): PATIENT C/O WHEEZING, COUGH, SNEEZING, AND RUNNY NOSE HEENT Symptoms (Recalled from RN notes): Yes Resp Symptoms (Recalled from RN notes): Yes Skin Symptoms (Recalled from RN notes): No MS Symptoms (Recalled from RN notes): No Functional Status (Recalled from RN notes): WNL - History of Present Illness Provider Complaint: Patient states that she has been having sinus pain and pressure for over a week and feeling pressure in her right ear States that she has been having drainage in the back of her throat and at times when she lays down feels like she is wheezing States that when she sits up she feels a little better States that she was worried it was trying to move into her chest - Related Data Home Medications Medication Instructions Recorded Confirmed Cetirizine HCl 10 mg PO DAILY 11/17/19 05/08/21 Ergocalciferol (Vitamin D2) 50,000 unit PO QWEEK 11/17/19 05/08/21 [Drisdol] Previous Rx's Medication Instructions Recorded fluticasone propionate 50 1 spray INTRANASAL DAILY #16 g 06/26/20 mcg/actuation nasal spray,suspension trazodone 50 mg tablet 50 mg PO DAILY #30 tab 06/26/20 meloxicam 7.5 mg tablet 7.5 mg PO DAILY #30 tab 02/01/21 atorvastatin 40 mg tablet See Rx Instructions .ROUTE 03/08/21 .COMPLEX #90 tab cholecalciferol (vitamin D3) 25 See Rx Instructions .ROUTE 03/08/21 mcg (1,000 unit) capsule .COMPLEX #90 cap losartan 50 mg-hydrochlorothiazide See Rx Instructions .ROUTE 03/08/21 12.5 mg tablet .COMPLEX #90 tab metoprolol succinate 25 mg See Rx Instructions .ROUTE 03/08/21 tablet,extended release 24 hr .COMPLEX #90 tab pantoprazole
[2021-05-24 16:30] VITALS: BP 140/83; PULSE 80; RESP 20; TEMP 36.8; O2SAT 98
== END 2021-05-24 16:35 | disposition home or self-care (01) ==
LOC: ER 15:25 → UTC 15:26
PROVIDERS: Emergency Provider Nurse Practitioner; PCP Emergency Medicine
DX: J32.9 Chronic sinusitis, unspecified (principal); H93.8X9 Other specified disorders of ear, unspecified ear; I10 Essential (primary) hypertension; R78.5 Finding of other psychotropic drug in blood; K21.9 Gastro-esophageal reflux disease without esophagitis; K44.9 Diaphragmatic hernia without obstruction or gangrene; M54.9 Dorsalgia, unspecified; G89.29 Other chronic pain; G47.33 Obstructive sleep apnea (adult) (pediatric); E66.9 Obesity, unspecified; F32.A Depression, unspecified; F41.9 Anxiety disorder, unspecified; Z79.51 Long term (current) use of inhaled steroids; Z79.899 Other long term (current) drug therapy; Z87.440 Personal history of urinary (tract) infections; Z68.36 Body mass index [BMI] 36.0-36.9, adult
CPT/HCPCS: 99213; G0463

== ENCOUNTER 2021-06-20 23:00 | Emergency (ER) | payer MEDICARE, MEDICAID, SELFPAY ==
[2021-06-20 23:11] VITALS: BP 151/72; PULSE 68; RESP 18; TEMP 36.9; O2SAT 99; BMI 37.8
[2021-06-20 23:14] VITALS: BMI 37.8
--- NOTE | 2021-06-20 23:14 | CT_ITS ---
PROCEDURE INFORMATION: Exam: CT Cervical Spine Without Contrast Exam date and time: 06/20/2021 11:28 PM Age: 70 years old Clinical indication: Neck pain; Patient HX: Pain x3 weeks TECHNIQUE: Imaging protocol: Computed tomography images of the cervical spine without contrast. Radiation optimization: All CT scans at this facility use at least one of these dose optimization techniques: automated exposure control; mA and/or kV adjustment per patient size (includes targeted exams where dose is matched to clinical indication); or iterative reconstruction. COMPARISON: [facility] CT CERVICAL SPINE W/O CONT 12/04/2015 10:05 PM FINDINGS: Vertebrae: No acute fracture. Normal alignment. C2-C3: No significant disc protrusion. No severe spinal canal stenosis. No significant neural foraminal narrowing. C3-C4: No significant disc protrusion. No severe spinal canal stenosis. No significant neural foraminal narrowing. C4-C5: No significant disc protrusion. No severe spinal canal stenosis. No significant neural foraminal narrowing. C5-C6: No significant disc protrusion. No severe spinal canal stenosis. No significant neural foraminal narrowing. C6-C7: No significant disc protrusion. No severe spinal canal stenosis. No significant neural foraminal narrowing. C7-T1: No significant disc protrusion. No severe spinal canal stenosis. No significant neural foraminal narrowing. Soft tissues: Unremarkable. Lungs: Lung apices are normal. IMPRESSION: No acute findings.
--- NOTE | 2021-06-20 23:28 | HMH.EDNECK ---
ED Disposition Clinical Impression: Neck pain on right side Disposition: Home, Self-Care Condition on Discharge: Good Instructions: DI for Neck Pain Additional Instructions: use meds and see pcp for follow up Prescriptions: predniSONE [Prednisone 20mg Tab] 20 mg PO BID #10 tab Transmission Status: Pending to [facility] #[id number] Referrals: El Maria MD [Primary Care Provider] - - Critical Care Critical Care Time: No Attestation: On 06/20/21, the high probability of a clinically significant, sudden or life threatening deterioration of the following system(s) required my full and direct attention, intervention and personal management. The time I documented below is in addition to time spent performing reported procedures but includes the following listed in this critical care notation. Medical Decision Making - Medical Records Medical records reviewed: Yes: I reviewed the patient's medical records. - Clayton Inquiry Pt receiving controlled substance: No Vital Signs: 06/20/21 23:11 Temperature 98.5 F Temperature Source Oral Pulse Rate [Apical] 68 Respiratory Rate 18 Blood Pressure [Right Arm] 151/72 H Blood Pressure Mean [Right Arm] 98 Blood Pressure Source [Right Arm] Automatic Cuff Blood Pressure Position [Right Arm] Sitting 02 Sat by Pulse Oximetry 99 Oxygen Delivery Method Room Air - Lab Data Lab results reviewed: Yes: I reviewed the patient's lab results. - CT Data CT Scan: C-Spine Time Received: 00:[address] Reviewed: Yes: I have viewed the radiologist's interpretation Preliminary Findings: No Fracture Seen Medical Decision Narrative: has neck pain with stable xrays and exam Neck Pain/Injury HPI - General Chief Complaint: Neck Pain/Injury Stated Complaint: Neck Right side around to shoulder Time Seen by Provider: 06/20/21 23:20 Source of Information: Patient, Medical Record Limitations: No Limitations Description of Symptoms (Recalled from ER Triage Doc. by RN): Patient c/o right sided neck pain for the prior three weeks. Denies any injury but thinks that she may have slept at an odd angle a few weeks ago that had lead to the injury. Denies any radiation. - History of Present Illness HPI Narrative: rt sided neck pain progressive over the last weeks w/o fever/rash or trauma complaint: neck pain Onset (ago): week(s) Place: home Radiation: right lateral Severity: moderate Quality: sharp Duration: intermittent Exacerbating factors: movement of neck Associated symptoms: none Treatments prior to arrival: prescription analgesic - Related Data Home Medications Medication Instructions Recorded Confirmed RX: Cetirizine HCl 10 mg PO DAILY 11/17/19 06/04/21 RX: Ergocalciferol (Vitamin D2) 50,000 unit PO QWEEK 11/17/19 06/04/21 [Drisdol] Previous Rx's Medication Instructions Recorded fluticasone propionate 50 1 spray INTRANASAL DAILY #16 g 06/26/20 mcg/actuation nasal spray,suspension trazodone 50 mg tablet 50 mg PO DAILY #30 tab 06/26/20 meloxicam 7.5 mg tablet 7.5 mg PO DAILY #30 tab 02/01/21 cholecalciferol (vitamin D3) 25 See Rx Instructions .ROUTE 03/08/21 mcg (1,000 unit) capsule .COMPLEX #90 cap losartan 50 mg-hydrochlorothiazide See Rx Instructions .ROUTE 03/08/21 12.5 mg tablet .COMPLEX #90 tab metoprolol succinate 25 mg See Rx Instructions .ROUTE 03/08/21 tablet,extended release 24 hr .COMPLEX #90 tab gabapentin 800 mg tablet 800 mg PO QID #120 tab 05/08/21 oxycodone-acetaminophen 10 mg-325 1 tab PO TID #90 tab 05/08/21 mg tablet ondansetron HCl 4 mg tablet 4 mg PO Q8H PRN #30 tab 05/27/21 phentermine 37.5 mg tablet 37.5 mg PO DAILY #30 tab 05/31/21 atorvastatin 40 mg tablet See Rx Instructions .ROUTE 06/04/21 .COMPLEX #90 tab pantoprazole 40 mg tablet,delayed See Rx Instructions .ROUTE 06/04/21 release .COMPLEX #90 tab predniSONE [Prednisone 20mg 20 mg PO BID #10 tab 06/21/21 Tab] Allergies Allergy/AdvReac
[2021-06-21 00:15] VITALS: BP 136/82; PULSE 78; RESP 20; TEMP 36.8; O2SAT 99
== END 2021-06-21 00:21 | disposition home or self-care (01) ==
PROVIDERS: Emergency Provider Emergency Medicine; PCP Emergency Medicine
DX: M54.2 Cervicalgia (principal); F41.8 Other specified anxiety disorders; E78.5 Hyperlipidemia, unspecified; I10 Essential (primary) hypertension; Z87.891 Personal history of nicotine dependence
CPT/HCPCS: 72125; 99283

== ENCOUNTER → 2021-07-08 13:25 | Outpatient (CLI) | payer MEDICARE, MEDICAID, SELFPAY | PROVIDERS: PCP Emergency Medicine; Visit Provider Emergency Medicine | DX: Z01.812 Encounter for preprocedural laboratory examination (principal); Z11.52 Encounter for screening for COVID-19; R13.10 Dysphagia, unspecified; Z13.810 Encounter for screening for upper gastrointestinal disorder; Z12.11 Encounter for screening for malignant neoplasm of colon | CPT/HCPCS: C9803; U0003; U0005 ==

== ENCOUNTER 2021-07-09 10:00 | Day surgery (SDC) | payer MEDICARE, MEDICAID, SELFPAY ==
[2021-07-09 10:58] VITALS: BP 138/81; PULSE 73; RESP 18; TEMP 36.9; O2SAT 100; BMI 36.6
--- NOTE | 2021-07-09 11:17 | P.PN_ITS ---
[facility] Anesthesia Checklist - Patient Identification Patient Identification: Arm Band - Structural Data Admitted From: Home Planned Operative Procedure/s: EGD/Colonoscopy Consent for Planned Operative Procedure(s) Verified: Yes Verified Documents: Surgical Consent, History and Physical - NPO Status Verified Time NPO: 00:00 - Additional verifications Anesthesia Reactions: Yes (PONV) - Airway Assessment C-Spine Mobility Assessed: Yes (mp2) TMJ Mobility Assessed: Yes Dentition: Edentulous - Neurological Assessment Level of Consciousness: Awake, Alert - Anesthesia Plan Anesthesia Risk discussed: Yes Anesthesia Plan: Verified ASA Class: II Anesthesia Type: MAC [facility] History I have reviewed the patient's past medical history: Yes Medical History: Reports:: Anxiety, Depression, Gastroesophageal Reflux Disease(GERD), Hiatal Hernia, Hyperlipidemia, Hypertension, Urinary Tract Infection Denies:: Cancer, Diabetes Mellitus Type 1, Diabetes Mellitus Type 2, Internal Pacemaker, MRSA, Seizures *Have you ever received a pneumonia vaccine?: Yes *Have you received a flu vaccine this season?: Yes Other Medical History: Reports: Other Anesthesia experience/problems:: ponv Laterality Cases: Bilateral: Tonsillectomy Other Surgeries: Yes: Cholecystectomy, Colonoscopy, Hysterectomy-Total, Tubal Ligation, Other. No: Cancer Surgery, Pacemaker Amputation: Yes Fractures: No - *Social History Last grade of school completed: GED Smoking Status: Former smoker Alcohol Intake: never Alcohol Intake Frequency:: other Substance Use Type: denies use *Occupational Status:: disabled Housing: house *Travel in the last 8 weeks: None - Psychiatric History Pschychiatric History:: Reports:: Anxiety, Depression Family Hx:: Cancer, Diabetes, Heart Attack
[2021-07-09 11:23] VITALS: O2SAT 100
[2021-07-09 12:00] VITALS: BP 109/74; PULSE 70; RESP 16; TEMP 36.3; O2SAT 95
--- NOTE | 2021-07-09 12:03 | HMH.SCOPE ---
- Procedure: Date: 07/09/21 Patient Date of :: 1950 Procedure Performed:: Esophagogastroduodenoscopy with biopsy Colonoscopy (limited secondary to poor bowel preparation) Indications:: Gastroesophageal reflux, hiatal hernia, screening colonoscopy Note: The patient is status post colonoscopy in October 2019. 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 This finding raised the question of possible Crohn's disease and a gastroenterology consultation was ordered. The patient states that she never saw the GI doctor . Performing Provider:: Keith Holden MD Referring Provider:: . Sedation:: Monitored anesthesia care Procedure:: After informed consent was obtained the patient was taken to the endoscopy suite. Sedation ensued after the patient was transferred to the left lateral decubitus position. Pulse, blood pressure, and oxygen saturation were monitored throughout the procedure. The endoscope was advanced beyond the duodenal bulb. Retroflexion within the gastric lumen was accomplished. The gastroscope was carefully removed. Digital rectal exam revealed no significant abnormality. The colonoscope was placed in position. The entire colon was evaluated. The colonoscope was carefully removed and the patient was transferred to recovery in stable condition. Please see findings and specimens below for detail. Findings:: Small sliding hiatal hernia Patchy gastritis 2 very small (essentially healed) distal gastric body ulcerations Bowel preparation poor Scattered diverticulosis Specimens:: Antral biopsy Distal gastric ulcer Recommendations:: Follow-up pathology Gastroenterology consultation still warranted due to the question of Crohn's disease. The patient had very limited visualization on this colonoscopy secondary to poor bowel preparation. Complications:: No immediate with the exception of limited bowel preparation Estimated blood obtained (mL): 1
[2021-07-09 12:10] VITALS: BP 123/79; PULSE 77; RESP 16; O2SAT 97
[2021-07-09 12:20] VITALS: BP 122/77; PULSE 69; RESP 16; O2SAT 98
[2021-07-09 12:37] VITALS: BP 117/72; PULSE 68; RESP 16; TEMP 36.3; O2SAT 98
== END 2021-07-09 12:37 | disposition home or self-care (01) ==
LOC: OUTP 10:02
PROVIDERS: PCP Emergency Medicine; Visit Provider Surgery
PROC: 0DJ08ZZ Inspection of Upper Intestinal Tract, Via Natural or Artificial Opening Endoscopic (ICD-10-PCS; CPT 43235; principal; 2021-07-09 11:30)
PROC: 0DJD8ZZ Inspection of Lower Intestinal Tract, Via Natural or Artificial Opening Endoscopic (ICD-10-PCS; CPT 45378; 2021-07-09 11:30)
DX: Z12.11 Encounter for screening for malignant neoplasm of colon (principal); K29.70 Gastritis, unspecified, without bleeding; K44.9 Diaphragmatic hernia without obstruction or gangrene; K25.9 Gastric ulcer, unspecified as acute or chronic, without hemorrhage or perforation; K57.30 Diverticulosis of large intestine without perforation or abscess without bleeding; K21.9 Gastro-esophageal reflux disease without esophagitis; E78.5 Hyperlipidemia, unspecified; I10 Essential (primary) hypertension; Z80.9 Family history of malignant neoplasm, unspecified; Z83.3 Family history of diabetes mellitus; Z82.3 Family history of stroke; Z79.899 Other long term (current) drug therapy
CPT/HCPCS: 43239; G0121; 88305; 88342

== ENCOUNTER → 2021-08-13 14:55 | Outpatient (CLI) | payer MEDICAID, MEDICARE, SELFPAY ==
[2021-08-13 18:18] LABS: Coronavirus 19, PCR Not Detected (NotDetected); Influenza A, PCR Not Detected (NotDetected); Influenza B, PCR Not Detected (NotDetected)
[2021-08-13 18:48] LABS: Basophils # 0.1 K/mm3 (0-0.2); Eosinophils % 0.3 % (0.1-12.0); Hematocrit 44.9 % (37.0-47.0); Hemoglobin 14.7 g/dL (12.2-16.2); Lymphocytes # 1.4 K/mm3 (0.7-4.5); Lymphocytes % 14.4 % (10-50); Mean Corpuscular HGB Conc 32.7 g/dL (31.8-35.4); Mean Corpuscular Hemoglobin 31.9 pg (27.0-31.2); Mean Corpuscular Volume 97.7 fl (81-99); Mean Platelet Volume 10.8 fl (7.4-10.4); Monocytes # 0.4 K/mm3 (0.1-1.0); Monocytes % 4.1 % (1.7-9.3); Neutrophils # 7.9 K/mm3 (1.8-7.8); Neutrophils % 80.2 % (37.0-80.0); Platelet Count 333 K/mm3 (142-424); Red Cell Distribution Width 13.9 % (11.5-17.5); White Blood Count 9.8 K/mm3 (4.8-10.8)
[2021-08-13 18:51] LABS: Alanine Aminotransferase 20 U/L (12-78); Albumin Level 4.1 g/dl (3.5-5.0); Albumin/Globulin Ratio 1.5 (1.1-1.8); Alkaline Phosphatase 124 U/L (38-126); Anion Gap 11.5 mEq/L (5-15); Aspartate Amino Transferase 25 U/L (14-36); Bilirubin,Total 1.2 mg/dl (0.2-1.3); Blood Urea Nitrogen 19 mg/dl (7-17); Calcium 9.6 mg/dl (8.4-10.2); Carbon Dioxide 32 mmol/L (22.0-30.0); Chloride 98 mmol/L (98-107); Chol/HDL Ratio 2.9 (1-3.5); Cholesterol 182 mg/dl (140-200); Estimated Glomerular Filt Rate 62 ml/min (>60); GFR (African American) 75 ML/MIN (>60); Globulin 2.8 g/dL (1.3-3.2); Glucose 216 mg/dl (74-100); HDL Cholesterol 62 mg/dl (40-60); Potassium 4.5 mmoL/L (3.5-5.1); Sodium 137 mmol/L (136-145); Total Protein,Serum 6.9 g/dl (6.3-8.2); Triglycerides 183 mg/dl (30-150); VLDL Cholesterol 37 mg/dL (0-40)
[2021-08-13 19:02] LABS: Direct LDL Cholesterol 90.78 mg/dL (100-129)
[2021-08-13 19:08] LABS: 25-OH Vitamin D, Total 31.8 ng/mL (30-100); Free T4 (Free Thyroxine) 1.12 ng/dl (0.78-2.19)
[2021-08-13 19:22] LABS: Thyroid Stimulating Hormone 1.41 uIU/mL (0.465-4.68)
== END ==
PROVIDERS: PCP Emergency Medicine; Visit Provider Emergency Medicine
DX: Z20.822 Contact with and (suspected) exposure to COVID-19 (principal); R50.9 Fever, unspecified; E55.9 Vitamin D deficiency, unspecified; R82.90 Unspecified abnormal findings in urine; M54.50 Low back pain, unspecified; E66.9 Obesity, unspecified; Z68.35 Body mass index [BMI] 35.0-35.9, adult; Z79.899 Other long term (current) drug therapy
CPT/HCPCS: 80053; 80061; 82306; 83036; 84439; 84443; 85025; C9803; U0003; U0005

== ENCOUNTER → 2021-10-09 16:54 | Outpatient (CLI) | payer MEDICARE, MEDICAID, SELFPAY ==
[2021-10-09 18:40] LABS: Amphetamine/Metha Screen,Urine Negative ng/ml (<1000)
[2021-10-09 18:41] LABS: Barbiturates Screen,Urine Negative ng/ml (<200)
[2021-10-09 18:42] LABS: Benzodiazepines Screen,Urine Negative ng/ml (<200)
[2021-10-09 18:43] LABS: Cannabinoid Screen,Urine Negative ng/ml (<50)
[2021-10-09 18:44] LABS: Cocaine Screen,Urine Negative ng/ml (<300); Methadone Screen,Urine Negative ng/ml (<300)
[2021-10-09 18:45] LABS: Opiate Screen,Urine Negative ng/ml (<300)
[2021-10-09 18:46] LABS: Phencyclidine Screen,Urine Negative ng/ml (<25)
== END ==
PROVIDERS: PCP Emergency Medicine; Visit Provider Emergency Medicine
DX: Z79.899 Other long term (current) drug therapy (principal)
CPT/HCPCS: 80305

== ENCOUNTER → 2021-12-09 06:26 | Outpatient (CLI) | payer MEDICARE, MEDICAID, SELFPAY ==
[2021-12-09 15:44] LABS: Amphetamine/Metha Screen,Urine Negative ng/ml (<1000); Barbiturates Screen,Urine Negative ng/ml (<200)
[2021-12-09 15:45] LABS: Benzodiazepines Screen,Urine Negative ng/ml (<200)
[2021-12-09 15:46] LABS: Cannabinoid Screen,Urine Negative ng/ml (<50); Cocaine Screen,Urine Negative ng/ml (<300)
[2021-12-09 15:47] LABS: Methadone Screen,Urine Negative ng/ml (<300)
[2021-12-09 15:48] LABS: Opiate Screen,Urine Negative ng/ml (<300); Phencyclidine Screen,Urine Negative ng/ml (<25)
== END ==
PROVIDERS: PCP Emergency Medicine; Visit Provider Emergency Medicine
DX: Z79.899 Other long term (current) drug therapy (principal)
CPT/HCPCS: 80305

== ENCOUNTER → 2022-02-07 18:10 | Outpatient (CLI) | payer MEDICARE, MEDICAID, SELFPAY ==
[2022-02-07 16:13] LABS: Amphetamine/Metha Screen,Urine Negative ng/ml (<1000); Barbiturates Screen,Urine Negative ng/ml (<200)
[2022-02-07 16:14] LABS: Benzodiazepines Screen,Urine Negative ng/ml (<200); Cannabinoid Screen,Urine Negative ng/ml (<50)
[2022-02-07 16:16] LABS: Cocaine Screen,Urine Negative ng/ml (<300); Methadone Screen,Urine Negative ng/ml (<300)
[2022-02-07 16:17] LABS: Opiate Screen,Urine Negative ng/ml (<300)
[2022-02-07 16:18] LABS: Phencyclidine Screen,Urine Negative ng/ml (<25)
== END ==
PROVIDERS: PCP Emergency Medicine; Visit Provider Emergency Medicine
DX: M47.816 Spondylosis without myelopathy or radiculopathy, lumbar region (principal)
CPT/HCPCS: 80305

== ENCOUNTER → 2022-04-08 18:39 | Outpatient (CLI) | payer MEDICARE, MEDICAID, SELFPAY ==
[2022-04-08 16:02] LABS: Amphetamine/Metha Screen,Urine Negative ng/ml (<1000)
[2022-04-08 16:03] LABS: Barbiturates Screen,Urine Negative ng/ml (<200)
[2022-04-08 16:04] LABS: Benzodiazepines Screen,Urine Negative ng/ml (<200); Cannabinoid Screen,Urine Negative ng/ml (<50)
[2022-04-08 16:06] LABS: Cocaine Screen,Urine Negative ng/ml (<300); Methadone Screen,Urine Negative ng/ml (<300)
[2022-04-08 16:07] LABS: Opiate Screen,Urine Negative ng/ml (<300)
[2022-04-08 16:13] LABS: Phencyclidine Screen,Urine Negative ng/ml (<25)
== END ==
PROVIDERS: PCP Emergency Medicine; Visit Provider Emergency Medicine
DX: M47.816 Spondylosis without myelopathy or radiculopathy, lumbar region (principal)
CPT/HCPCS: 80305

== ENCOUNTER → 2022-06-03 23:48 | Outpatient (CLI) | payer MEDICARE, MEDICAID, SELFPAY ==
[2022-06-03 18:36] LABS: Barbiturates Screen,Urine Negative ng/ml (<200); Benzodiazepines Screen,Urine Negative ng/ml (<200)
[2022-06-03 18:37] LABS: Amphetamine/Metha Screen,Urine Negative ng/ml (<1000)
[2022-06-03 18:38] LABS: Cannabinoid Screen,Urine Negative ng/ml (<50)
[2022-06-03 18:39] LABS: Cocaine Screen,Urine Negative ng/ml (<300); Methadone Screen,Urine Negative ng/ml (<300)
[2022-06-03 18:40] LABS: Opiate Screen,Urine Negative ng/ml (<300); Phencyclidine Screen,Urine Negative ng/ml (<25)
== END ==
PROVIDERS: PCP Emergency Medicine; Visit Provider Emergency Medicine
DX: M47.816 Spondylosis without myelopathy or radiculopathy, lumbar region (principal)
CPT/HCPCS: 80305

== ENCOUNTER → 2022-06-06 14:33 | Outpatient (CLI) | payer MEDICARE, MEDICAID, SELFPAY | PROVIDERS: PCP Emergency Medicine; Visit Provider Emergency Medicine | DX: M47.816 Spondylosis without myelopathy or radiculopathy, lumbar region (principal) ==

== ENCOUNTER 2022-07-25 14:33 | Emergency (ER) | payer MEDICARE, MEDICAID, SELFPAY ==
[2022-07-25 14:39] VITALS: BP 138/94; PULSE 76; RESP 16; TEMP 36.7; O2SAT 98; BMI 32.3
--- NOTE | 2022-07-25 14:46 | XR_ITS ---
FINAL REPORT CLINICAL HISTORY: . pain. weakness in left leg FINDINGS: Sacrum/coccyx Three views were obtained. There is no acute fracture or dislocation. The sacroiliac joints are intact. The joint spaces appear normal. No soft tissue abnormality is identified. IMPRESSION: No acute process. Reviewed, Interpreted and Dictated by Rosales Berman MD Transcribed by Dorene Garduno Authenticated and [facility]
--- NOTE | 2022-07-25 14:46 | XR_ITS ---
FINAL REPORT CLINICAL HISTORY: PAIN. weakness left leg FINDINGS: LUMBAR SPINE Three views demonstrate no acute fracture. The disc spaces are well preserved. There is mild anterior osteophyte formation at L2-3 and L3-4. There is no malalignment. IMPRESSION: Mild degenerative changes. Reviewed, Interpreted and Dictated by Rosales Berman MD Transcribed by Dorene Garduno Authenticated and [facility]
[2022-07-25 15:05] VITALS: BP 138/94; PULSE 76; RESP 16; TEMP 36.7; O2SAT 98; BMI 32.1
--- NOTE | 2022-07-25 15:19 | EXP.UTC ---
Discharge Plan Disposition Patient Disposition: Home, Self-Care Condition: Good Prescriptions Prescriptions: New methylprednisolone 4 mg Tablets,Dose Pack 4 mg PO DIRECTED Qty: 21 0RF No Action cetirizine 10 mg tablet 10 mg PO DAILY Qty: 90 0RF ergocalciferol (vitamin D2) 1,250 mcg (50,000 unit) capsule 50,000 unit PO QWEEK Qty: 14 1RF fluticasone propionate 50 mcg/actuation spray,suspension 1 spray INTRANASAL DAILY Qty: 16 0RF metoprolol succinate 25 mg tablet extended release 24 hr See Rx Instructions .ROUTE .COMPLEX Qty: 90 0RF Dose Instruction: TAKE 1 TABLET BY MOUTH DAILY FOR BLOOD PRESSURE Rx Instructions: TAKE 1 TABLET BY MOUTH DAILY FOR BLOOD PRESSURE cyclobenzaprine 10 mg tablet 10 mg PO HS Qty: 30 1RF gabapentin 800 mg tablet 800 mg PO QID Qty: 120 1RF oxycodone-acetaminophen 10-325 mg tablet 1 tab PO TID Qty: 90 0RF ondansetron HCl 4 mg tablet 4 mg PO Q8H PRN (Reason: nausea and vomiting) Qty: 30 0RF pantoprazole 40 mg tablet,delayed release (DR/EC) See Rx Instructions .ROUTE .COMPLEX Qty: 90 0RF Dose Instruction: TAKE 1 TABLET BY MOUTH DAILY FOR GERD Rx Instructions: TAKE 1 TABLET BY MOUTH DAILY FOR GERD atorvastatin 40 mg tablet See Rx Instructions .ROUTE .COMPLEX Qty: 90 0RF Dose Instruction: TAKE 1 TABLET BY MOUTH DAILY FOR CHOLESTEROL Rx Instructions: TAKE 1 TABLET BY MOUTH DAILY FOR CHOLESTEROL trazodone 50 MG tablet 50 mg PO DAILY losartan-hydrochlorothiazide 1 EACH tablet See Rx Instructions .Route .COMPLEX Rx Instructions: TAKE 1 TABLET BY MOUTH DAILY FOR BLOOD PRESSURE cholecalciferol (vitamin D3) 1,000 UNIT capsule See Rx Instructions .Route .COMPLEX Rx Instructions: TAKE 1 CAPSULE BY MOUTH EVERY DAY meloxicam 7.5 mg tablet 7.5 mg PO DAILY PRN (Reason: Pain) Referrals Follow up/Referrals: El Maria MD [Primary Care Provider] - See instructions Activity Restrictions/Add. Instructions Additional Instructions/Restrictions: Rest the extremity, Elevate the extremity as tolerated while you are resting. Take tylenol or ibuprofen (if you can take it) for pain. Follow up with Dr. Scales (orthopedics). I put in a referral but you need to call his office and schedule an appointment. Make sure you follow up with your regular doctor soon. GO TO THE ER FOR ANY WORSENING SYMPTOMS Clinical Impressions Clinical Impression: Low back pain, Left hip pain, Left knee pain Instructions Patient Instructions: DI for Low Back Pain, DI for Hip Pain, DI for Knee Pain Discharge ED Provider: Ch[place] Kumar [facility] [place] HPI General Stated complaint: Fall@home 5 LT leg weakness, bodyaches Mode of Arrival: Ambulatory Source of Information: Patient Limitations: No Limitations Time Seen by Provider: 07/25/22 15:19 Description of Symptoms (Recalled from Triage Doc. by RN): Pt advises she is having lower back pain that goes down into her leg causing some weakness in the leg. Advises it has been ongoing since 07/21 and last night she fell on her tailbone and is having some increased pain HEENT Symptoms (Recalled from RN notes): No Resp Symptoms (Recalled from RN notes): No Skin Symptoms (Recalled from RN notes): No MS Symptoms (Recalled from RN notes): Yes Functional Status (Recalled from RN notes): WNL History of Present Illness Provider Complaint: She states that for the past couple of weeks she has been having low back pain that radiates down her left leg. She states that this has made her left leg weak at times. Today, this leg weakness caused her leg to go out and caused her to fall. She came down on her left knee, left hip and her bottom. She is c/o low back pain, left hip pain and left knee pain. Related Data Home Medications Medication Instructions Recorded Confirmed cholecalciferol (vitamin D3) 25 See Rx Instructions .Route 07/08/21 06/03/22 mcg (1,
--- NOTE | 2022-07-25 15:58 | XR_ITS ---
FINAL REPORT CLINICAL HISTORY: fall, left knee pain COMPARISON: 02/01/2021 FINDINGS: Left knee Three views were obtained. There is no acute fracture or dislocation. The joint spaces appear normal. There are small osteophytes along the undersurface of the patella. There is sharpening of the tibial spines. No soft tissue abnormality is identified. IMPRESSION: Mild changes of osteoarthritis. Reviewed, Interpreted and Dictated by Rosales Berman MD Transcribed by Dorene Garduno Authenticated and [facility]
--- NOTE | 2022-07-25 15:58 | XR_ITS ---
FINAL REPORT CLINICAL HISTORY: fall, left hip pain FINDINGS: Left hip Two views were obtained. There is no acute fracture or dislocation. The femoral head demonstrates a normal smooth contour. The joint spaces appear normal. No soft tissue abnormality is identified. IMPRESSION: No acute process. Reviewed, Interpreted and Dictated by Rosales Berman MD Transcribed by Dorene Garduno Authenticated and [facility]
[2022-07-25 17:08] VITALS: BP 138/94; PULSE 76; RESP 16; TEMP 36.7; O2SAT 98
== END 2022-07-25 17:19 | disposition home or self-care (01) ==
PROVIDERS: Emergency Provider Nurse Practitioner Family; PCP Emergency Medicine
DX: M25.552 Pain in left hip (principal); M25.562 Pain in left knee; M54.50 Low back pain, unspecified; W18.39XA Other fall on same level, initial encounter
CPT/HCPCS: 72100; 72220; 73502; 73562; 96372; 99212; 99214; G0463

== ENCOUNTER 2022-09-10 10:00 | Outpatient (RCR) | payer MEDICARE, MEDICAID, SELFPAY ==
--- NOTE | 2022-08-20 14:59 | HMH.PTOPEV ---
PT Outpatient Evaluation Rehab PT Outpatient Evaluation Start: 08/20/22 13:50 Freq: Status: Active Protocol: Document 08/20/22 13:50 PDESEROUX (Rec: 08/20/22 14:59 [email or web address] [id number]) E-signed By Santosh Rinaldi, PT Outpatient Therapy Subjective History Subjective History Pt. is a 71 year old female whom presents to [facility] Outpatient Physical Therapy Services in [place] for the initial evaluation this date( 08/20/22) w/ c/o subacute and constant lumbar/LLE P! and gait abnormalaties of traumatic onset since the end of June (2022) secondary to a fall. Pt. reports initial fall was at the end of June, but vocalizes having 10 falls in total to date(08/20/22). Pt . reports increase in LLE soreness and P! secondary to the falls, and that the increase in soreness and P! have led to to an increased fall risk. Pt. reports a giving out or weakness in the LLE that continues to lead to the falls. Pt. reports ambulating w/ FWW has improved her risk for a fall. Pt. reports requiring assistance w / ADLs secondary to current complaint, however, vocalize being IND. w/ ADLs and no AD prior to initial fall. Pt. reports symptoms complaint worsen w/ standing and ambulating. Pt. vocalizes having radiographs at the [facility] secondary to the fall, but reports not knowing the results. Pt. reports no injections for current complaints, reports having previous steroid injection in the lumbar spine for chronic LBP! that provided some symptom relief. Pt. RTMD 09/24. Current medication list includes Gabapentin, Brendon
== END 2022-10-23 15:15 | disposition home or self-care (01) ==
LOC: PT 10:00
PROVIDERS: PCP Emergency Medicine; Visit Provider Emergency Medicine
DX: R26.9 Unspecified abnormalities of gait and mobility (principal); M54.9 Dorsalgia, unspecified; M54.50 Low back pain, unspecified
CPT/HCPCS: 97110; 97140; 97163

== ENCOUNTER → 2022-09-24 15:10 | Outpatient (CLI) | payer MEDICARE, MEDICAID, SELFPAY ==
[2022-09-24 18:47] LABS: Alanine Aminotransferase 22 U/L (12-78); Albumin Level 4.3 g/dl (3.5-5.0); Albumin/Globulin Ratio 1.5 (1.1-1.8); Alkaline Phosphatase 120 U/L (38-126); Anion Gap 16.5 mEq/L (5-15); Aspartate Amino Transferase 26 U/L (14-36); Bilirubin,Total 0.5 mg/dl (0.2-1.3); Blood Urea Nitrogen 16 mg/dl (7-17); Calcium 9.1 mg/dl (8.4-10.2); Carbon Dioxide 27 mmol/L (22.0-30.0); Chloride 102 mmol/L (98-107); Chol/HDL Ratio 2.9 (1-3.5); Cholesterol 199 mg/dl (140-200); Estimated Glomerular Filt Rate 40 ml/min (>60); GFR (African American) 49 ML/MIN (>60); Globulin 2.9 g/dL (1.3-3.2); Glucose 114 mg/dl (74-100); HDL Cholesterol 68 mg/dl (40-60); Potassium 4.5 mmoL/L (3.5-5.1); Sodium 141 mmol/L (136-145); Total Protein,Serum 7.2 g/dl (6.3-8.2)
[2022-09-24 18:48] LABS: Triglycerides 419 mg/dl (30-150)
[2022-09-24 18:59] LABS: Direct LDL Cholesterol 71.61 mg/dL (100-129)
[2022-09-24 19:03] LABS: Hemoglobin A1C 6.2 % (4.0-6.0)
[2022-09-24 19:05] LABS: Free T4 (Free Thyroxine) 0.91 ng/dl (0.78-2.19)
[2022-09-24 19:06] LABS: 25-OH Vitamin D, Total 23.1 ng/mL (30-100)
[2022-09-24 19:17] LABS: Basophils # 0.1 K/mm3 (0-0.2); Basophils % 0.9 % (0.1-2.0); Eosinophils # 0.3 K/mm3 (0.0-0.4); Eosinophils % 3.1 % (0.1-12.0); Hematocrit 42.5 % (37.0-47.0); Hemoglobin 13.4 g/dL (12.2-16.2); Lymphocytes # 2.7 K/mm3 (0.7-4.5); Lymphocytes % 30.8 % (10-50); Mean Corpuscular HGB Conc 31.5 g/dL (31.8-35.4); Mean Corpuscular Hemoglobin 30.1 pg (27.0-31.2); Mean Corpuscular Volume 95.3 fl (81-99); Mean Platelet Volume 10.3 fl (7.4-10.4); Monocytes # 0.7 K/mm3 (0.1-1.0); Monocytes % 8.1 % (1.7-9.3); Neutrophils # 5.1 K/mm3 (1.8-7.8); Platelet Count 359 K/mm3 (142-424); Red Blood Count 4.46 M/mm3 (4.20-5.40); Red Cell Distribution Width 13.9 % (11.5-17.5); White Blood Count 8.9 K/mm3 (4.8-10.8)
[2022-09-24 19:18] LABS: Thyroid Stimulating Hormone 4.44 uIU/mL (0.465-4.68)
[2022-09-24 19:35] LABS: Amphetamine/Metha Screen,Urine Negative ng/ml (<1000); Barbiturates Screen,Urine Negative ng/ml (<200)
[2022-09-24 19:36] LABS: Benzodiazepines Screen,Urine Negative ng/ml (<200); Cannabinoid Screen,Urine Negative ng/ml (<50)
[2022-09-24 19:37] LABS: Cocaine Screen,Urine Negative ng/ml (<300)
[2022-09-24 19:38] LABS: Methadone Screen,Urine Negative ng/ml (<300)
[2022-09-24 19:39] LABS: Opiate Screen,Urine Negative ng/ml (<300)
[2022-09-24 19:40] LABS: Phencyclidine Screen,Urine Negative ng/ml (<25)
== END ==
PROVIDERS: PCP Emergency Medicine; Visit Provider Emergency Medicine
DX: I10 Essential (primary) hypertension (principal); R73.03 Prediabetes; Z79.899 Other long term (current) drug therapy; E55.9 Vitamin D deficiency, unspecified; E78.5 Hyperlipidemia, unspecified
CPT/HCPCS: 80053; 80061; 80305; 82306; 83036; 84439; 84443; 85025

== ENCOUNTER → 2022-11-25 11:00 | Outpatient (CLI) | payer MEDICARE, MEDICAID, SELFPAY ==
[2022-11-25 19:16] LABS: Amphetamine/Metha Screen,Urine Negative ng/ml (<1000); Benzodiazepines Screen,Urine Negative ng/ml (<200)
[2022-11-25 19:17] LABS: Barbiturates Screen,Urine Negative ng/ml (<200); Methadone Screen,Urine Negative ng/ml (<300)
[2022-11-25 19:18] LABS: Cannabinoid Screen,Urine Negative ng/ml (<50)
[2022-11-25 19:19] LABS: Cocaine Screen,Urine Negative ng/ml (<300)
[2022-11-25 19:20] LABS: Opiate Screen,Urine Negative ng/ml (<300)
[2022-11-25 19:21] LABS: Phencyclidine Screen,Urine Negative ng/ml (<25)
== END ==
PROVIDERS: PCP Emergency Medicine; Visit Provider Emergency Medicine
DX: Z79.899 Other long term (current) drug therapy (principal)
CPT/HCPCS: 80305

== ENCOUNTER → 2022-12-11 13:38 | Outpatient (CLI) | payer MEDICARE, MEDICAID, SELFPAY ==
--- NOTE | 2022-12-11 13:46 | MR_ITS ---
FINAL REPORT CLINICAL HISTORY: back and leg pain COMPARISON: None FINDINGS: Multiplanar MR imaging of the lumbar spine was performed without contrast. On the sagittal T2-weighted images, there is abnormal decreased signal throughout the lumbar discs. The vertebrae are of normal height. The vertebral alignment is normal. L1-2: There is no significant canal stenosis or neural foraminal narrowing. L2-3: A mild diffuse annular bulge is present with posterolateral protrusions producing mild to moderate bilateral neural foraminal narrowing. L3-4: A mild annular bulge is present with posterolateral protrusions and moderate bilateral neural foraminal narrowing. L4-5: A mild annular bulge is present with mild bilateral neural foraminal narrowing. L5-S1: There is no significant canal stenosis or neural foraminal narrowing. IMPRESSION: Multilevel degenerative change in the lumbar spine as described, most severe at the L2-3, L3-4, and L4-5 levels. Reviewed, Interpreted and Dictated by Rosales Berman MD Transcribed by Mayela Yen Authenticated and [facility]
== END ==
PROVIDERS: PCP Emergency Medicine; Visit Provider Emergency Medicine
DX: M54.50 Low back pain, unspecified (principal)
CPT/HCPCS: 72148; 76376

== ENCOUNTER → 2023-01-21 13:31 | Outpatient (CLI) | payer MEDICARE, MEDICAID, SELFPAY ==
[2023-01-21 19:21] LABS: Coronavirus 19, PCR Not Detected (NotDetected); Influenza A, PCR Not Detected (NotDetected); Influenza B, PCR Not Detected (NotDetected)
[2023-01-21 19:50] LABS: Barbiturates Screen,Urine Negative ng/ml (<200); Benzodiazepines Screen,Urine Negative ng/ml (<200)
[2023-01-21 19:51] LABS: Amphetamine/Metha Screen,Urine Negative ng/ml (<1000)
[2023-01-21 19:52] LABS: Cannabinoid Screen,Urine Negative ng/ml (<50); Cocaine Screen,Urine Negative ng/ml (<300)
[2023-01-21 19:53] LABS: Methadone Screen,Urine Negative ng/ml (<300); Opiate Screen,Urine Negative ng/ml (<300)
[2023-01-21 19:54] LABS: Phencyclidine Screen,Urine Negative ng/ml (<25)
== END ==
PROVIDERS: PCP Emergency Medicine; Visit Provider Emergency Medicine
DX: Z79.899 Other long term (current) drug therapy (principal); J32.8 Other chronic sinusitis; R05.8 Other specified cough; R11.0 Nausea; R53.1 Weakness; R19.7 Diarrhea, unspecified; H92.03 Otalgia, bilateral; M19.90 Unspecified osteoarthritis, unspecified site
CPT/HCPCS: 80305; 87636

== ENCOUNTER → 2023-02-03 13:27 | Outpatient (CLI) | payer MEDICARE, MEDICAID, SELFPAY ==
[2023-02-03 14:56] LABS: Anion Gap 8.8 mEq/L (5-15); Blood Urea Nitrogen 14 mg/dl (7-17); Calcium 9.3 mg/dl (8.4-10.2); Carbon Dioxide 36 mmol/L (22.0-30.0); Chloride 97 mmol/L (98-107); Estimated Glomerular Filt Rate 55 ml/min (>60); GFR (African American) 66 ML/MIN (>60); Glucose 122 mg/dl (74-100); Potassium 4.8 mmoL/L (3.5-5.1); Sodium 137 mmol/L (136-145)
== END ==
PROVIDERS: PCP Emergency Medicine; Visit Provider Emergency Medicine
DX: N28.9 Disorder of kidney and ureter, unspecified (principal)
CPT/HCPCS: 80048

== ENCOUNTER → 2023-02-11 13:50 | Outpatient (CLI) | payer MEDICARE, MEDICAID, SELFPAY ==
[2023-02-11 15:00] LABS: Amphetamine/Metha Screen,Urine Negative ng/ml (<1000); Barbiturates Screen,Urine Negative ng/ml (<200)
[2023-02-11 15:01] LABS: Benzodiazepines Screen,Urine Negative ng/ml (<200)
[2023-02-11 15:02] LABS: Cocaine Screen,Urine Negative ng/ml (<300)
[2023-02-11 15:03] LABS: Methadone Screen,Urine Negative ng/ml (<300); Opiate Screen,Urine Negative ng/ml (<300)
[2023-02-11 15:04] LABS: Phencyclidine Screen,Urine Negative ng/ml (<25)
[2023-02-11 15:16] LABS: Cannabinoid Screen,Urine Negative ng/ml (<50)
== END ==
PROVIDERS: PCP Emergency Medicine; Visit Provider Emergency Medicine
DX: Z79.899 Other long term (current) drug therapy (principal)
CPT/HCPCS: 80307

== ENCOUNTER → 2023-03-03 16:53 | Outpatient (CLI) | payer MEDICARE, MEDICAID, SELFPAY ==
[2023-03-03 16:04] LABS: Phencyclidine Screen,Urine Negative ng/ml (<25)
[2023-03-03 16:05] LABS: Amphetamine/Metha Screen,Urine Negative ng/ml (<1000)
[2023-03-03 16:08] LABS: Benzodiazepines Screen,Urine Negative ng/ml (<200)
[2023-03-03 16:09] LABS: Barbiturates Screen,Urine Negative ng/ml (<200); Cannabinoid Screen,Urine Negative ng/ml (<50)
[2023-03-03 16:10] LABS: Opiate Screen,Urine Negative ng/ml (<300)
[2023-03-03 16:11] LABS: Cocaine Screen,Urine Negative ng/ml (<300); Methadone Screen,Urine Negative ng/ml (<300)
== END ==
PROVIDERS: PCP Nurse Practitioner Family; Visit Provider Internal Medicine
DX: Z79.899 Other long term (current) drug therapy (principal)
CPT/HCPCS: 80307

== ENCOUNTER 2023-03-04 07:05 | Outpatient (CLI) | payer MEDICARE, MEDICAID, SELFPAY ==
[2023-03-04] VITALS (9 sets, daily range): BP systolic 96–158; BP diastolic 56–85; PULSE 52–79; RESP 16–18; O2SAT 96–99
--- NOTE | 2023-03-04 07:15 | CT_ITS ---
APPROVED REPORT Appliance Service Technician: CLINICAL INDICATION Chest Pain TECHNIQUE Image Acquisition: A 128 slice MDCT scanner ([employer] View) was used for data acquisition. A noncontrast coronary calcium scan was performed. A CT attenuation threshold of 130 Hounsfield units (HU) was used for the detection of calcium in contiguous voxels of 1 sq mm in area to be counted as individual lesions. Bolus tracking in the ascending aorta with a threshold of 180 HU was performed. Immediately afterwards, ECG synchronized cardiac CT was then performed from the cardiac base to apex using retrospective gating with ECG tube current modulation. A total of 85 mL of Isovue 370 mg/mL contrast medium was administered at 5 mL/sec followed by a saline flush using a biphasic injection protocol. A tube voltage of 120 KVp was used. The patient received the following medications prior to the cardiac CT. 50 mg of oral metoprolol 10 mg of intravenous metoprolol 0.8 mg of sublingual nitroglycerin The average heart rate at the time of acquisition was 58 bpm and regular. Image Reconstruction Transaxial images were reconstructed at 0.67 mm slide thickness. Data was reviewed interactively on an advanced workstation capable of 2 and 3-dimensional displays in all conventional reconstruction formats, including multiplanar reformations, maximum intensity projections, curved multiplanar reformations, and volume rendered reconstructions. When applicable, selected routine images describing the relevant coronary anatomy and pathology were saved and sent to PACS. Complications None Technical Quality Overall image quality was good. Coronary artery opacification was adequate. Total DLP (Dose-Length Product) is 1469.0 mGy-cm. The reported value represents the total of one or more individual components during the CT acquisition of this date and at this time, and as such, the same value may appear in more than one CT report depending on the interpreting/reporting physicians. COMPARISON None FINDINGS CT Coronary Calcium Scoring LMA (Left Main Artery) = 0 LAD (Left Anterior Descending) = 47 LCX (Left Coronary Circumflex) = 26 RCA (Right Coronary Artery) = 164 Total Calcium Score = 237 using the AJ-130 method. The observed calcium score of 237 is at 80th percentile for subjects of the same age, sex, and race/ethnicity. The interpretation of the calcium heart score is based on the following continuum*: 0 = no calcified plaque detected (risk of coronary artery disease is very low ??? less than 5%) 1-10 = calcium detected in extremely minimal levels (risk of coronary diseases is still low ??? less than 10%) 11-100 = mild levels of plaque detected with certainty (mild or minimal narrowing of heart arteries is likely) 101-400 = definite,at least moderate levels of plaque detected (relatively high risk of a heart attack within 3-5 years) >401-999 = extensive levels of plaque detected (high risk of heart attack, high levels of vascular disease are present, high likelihood of at least one significant coronary narrowing) *The calcium heart score quantifies the burden of coronary calcification/plaque in the coronary arteries. The calcium heart score is not able to evaluate the presence or burden of non-calcified (i.e. soft) plaque. There is also calcification in the aortic valve and the mitral valve annulus. Coronary CT Angiography The coronary arterial system is right dominant. Quantitative Stenosis Grading: Left Main (LM): The left main originates normally from the left sinus of Valsalva. The LM trifurcates into the left anterior descending artery and left circumflex artery. The LM is patent with no evidence of atherosclerosis. Left Anterior Descending (LAD) and Diagonal Branches: The LAD gives off 2 diagonal branches. There is focal calcification with mild 20-49% luminal stenosis in the mid-LAD. The remainder of the LAD and its branches are patent with no evidence of atherosclerosis. There is no evidence of LAD bridge. Ramus-intermedius (RI): The RI is patent. Left Circumflex (LCX) and Obtuse Marginals (OM): The LCX gives off 2 Obtuse Marginal (OM) branches. There is focal calcification in the proximal LCX, but without evidence of luminal stenosis. The remainder of the LCX and its branches are patent with no evidence of atherosclerosis. Right Coronary Artery (RCA): The RCA originates normally from the right sinus of Valsalva. The RCA gives off a posterior descending artery (PDA) and posterolateral (PL) branches. There is calcification in the proximal and distal RCA without evidence of luminal stenosis. Non-Coronary Cardiac Findings: Analysis of the left ventricular (LV) structure and function was performed after 3-D reconstruction of the LV from axial images, with user-corrected automatic contouring for assessment of LV volumes and user-defined reconstruction from oblique planes for measurement of 3-D cardiac structure and function. LVEDV: 109 mL LVESV: 49 mL SV: 60 mL LVEF: 55.0% -The left ventricle is normal in size with normal left ventricular systolic function. -There is no left atrial appendage filling defect. Two right pulmonary veins and two left pulmonary veins drain normally into the left atrium. -No pericardial thickening or calcification. -Central and branch pulmonary arteries in the [id number] are unremarkable. -Thoracic aorta within the visualized thoracic aortic-branches in the [id number] is unremarkable. Extracardiac Structures No significant extra-cardiac findings. IMPRESSION -Presence of coronary calcification with an Agatston score = 237 using the AJ-130 method. -The observed calcium score of 237 is at 80th percentile for subjects of the same age, sex, and race/ethnicity. -No evidence of significant flow-limiting atherosclerosis of the coronary arteries. -CAD-RADS 2. Management recommendations per ACC/AHA guidelines*, as clinically appropriate. -No significant non-coronary cardiac findings in the visualized segments of the chest. *Recommendations: CAD RADS 0: Reassurance. Consider non-atherosclerotic causes of chest pain. CAD RADS 1: Consider non-atherosclerotic causes of chest pain. Consider preventive therapy and risk factor modification. CAD RADS 2: Consider non-atherosclerotic causes of chest pain. Consider preventive therapy and risk factor modification, particularly for patients with nonobstructive plaque in multiple segments. CAD RADS 3: Consider further functional testing. Consider symptom-guided anti-ischemic and preventive pharmacotherapy as well as risk factor modification per published guideline statements. CAD RADS 4A: Consider further functional testing or invasive coronary angiography with revascularization per published guideline statements. Consider symptom-guided anti-ischemic and preventive pharmacotherapy as well as risk factor modification per published guideline statements. CAD RADS 4B: Invasive coronary angiography recommended with revascularization per published guideline statements. Consider symptom-guided anti-ischemic and preventive pharmacotherapy as well as risk factor modification per published guideline statements. CAD RADS 5: Consider invasive angiography and/or viability assessment with revascularization per published guideline statements. Consider symptom-guided anti-ischemic and preventive pharmacotherapy as well as risk factor modification per published guideline statements. CRITICAL RESULT None COMMUNICATION Per this written report The coronary and cardiac findings of this CCTA were reviewed, reported, and signed by Bijan Lockett MD (Food Sales Clerk) Conclusion Electronically signed by : Vicky Lockett MD 03/05/2023 13:18:58
[2023-03-04] MEDS: NITROGLYCERIN 0.4MG SL TABLET 0.800000000000000044 MG SL (08:35)
[2023-03-04] MEDS: METOPROLOL TARTRATE 5MG/5ML VIAL 5 MG IV ×2 (08:50→09:05)
[2023-03-04] MEDS: IOPAMIDOL-370 (76%);100ML BOTTLE 85 ML IV (09:11)
[2023-03-04] MEDS: SODIUM CHLORIDE 0.9% 10ML SYR (RAD ONLY) 10 ML IV (09:11)
[2023-03-04] MEDS: 0.9 % SODIUM CHLORIDE 50 ML VIAL IV (09:11)
== END 2023-03-04 10:05 | disposition home or self-care (01) ==
PROVIDERS: PCP Emergency Medicine; Visit Provider Physician Assistant
DX: R06.00 Dyspnea, unspecified (principal); R07.89 Other chest pain; R01.1 Cardiac murmur, unspecified; E78.5 Hyperlipidemia, unspecified; G47.33 Obstructive sleep apnea (adult) (pediatric); E66.9 Obesity, unspecified; Z68.35 Body mass index [BMI] 35.0-35.9, adult
CPT/HCPCS: 75571; 75574; 93306; Q9967

== ENCOUNTER 2023-03-31 11:36 | Outpatient (CLI) | payer MEDICARE, MEDICAID, SELFPAY ==
[2023-03-31 14:59] LABS: Amphetamine/Metha Screen,Urine Negative ng/ml (<1000); Barbiturates Screen,Urine Negative ng/ml (<200); Benzodiazepines Screen,Urine Negative ng/ml (<200); Cannabinoid Screen,Urine Negative ng/ml (<50); Cocaine Screen,Urine Negative ng/ml (<300); Methadone Screen,Urine Negative ng/ml (<300); Opiate Screen,Urine Negative ng/ml (<300); Phencyclidine Screen,Urine Negative ng/ml (<25)
[2023-04-08 08:15] LABS: Opiates Negative (Cutoff=100)
[2023-04-08 10:34] LABS: Gabapentin,Urine 469.5 ug/mL (.)
== END 2023-03-31 23:59 ==
PROVIDERS: PCP Nurse Practitioner Family; Visit Provider Nurse Practitioner Family
DX: F41.9 Anxiety disorder, unspecified (principal); G62.9 Polyneuropathy, unspecified; Z79.899 Other long term (current) drug therapy
CPT/HCPCS: 80307; 80361; 80365; G0480

== ENCOUNTER 2023-04-08 10:46 | Outpatient (CLI) | payer MEDICAID, SELFPAY | END 2023-04-08 23:59 | LOC: RAD 10:47 | PROVIDERS: PCP Nurse Practitioner Family; Visit Provider Nurse Practitioner Family | DX: R26.9 Unspecified abnormalities of gait and mobility (principal); M79.671 Pain in right foot ==

== ENCOUNTER 2023-04-15 07:38 | Outpatient (RCR) | payer MEDICARE, MEDICAID, SELFPAY ==
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
== END 2023-06-08 07:59 | disposition home or self-care (01) ==
LOC: PT 07:38
PROVIDERS: PCP Nurse Practitioner Family; Visit Provider Nurse Practitioner Family
DX: M54.50 Low back pain, unspecified (principal)
CPT/HCPCS: 97163

== ENCOUNTER 2023-04-21 10:46 | Outpatient (CLI) | payer MEDICARE, MEDICAID, SELFPAY ==
--- NOTE | 2023-04-21 10:51 | XR_ITS ---
FINAL REPORT CLINICAL HISTORY: pain/swelling broke 1st digit 10 yrs ago FINDINGS: Left foot 3 VIEWS FINDINGS: 3 views show no acute fracture. There is generalized osteopenia. Post-arthroplasty changes of the 1st MTP joints are noted. Scattered mild degenerative changes are seen. IMPRESSION: Chronic changes without acute process Authenticated and [facility]
== END 2023-04-21 23:59 ==
LOC: RAD 10:47
PROVIDERS: PCP Nurse Practitioner Family; Visit Provider Nurse Practitioner Family
DX: R26.9 Unspecified abnormalities of gait and mobility (principal); M79.672 Pain in left foot
CPT/HCPCS: 73630

== ENCOUNTER 2023-08-04 09:13 | Outpatient (CLI) | payer MEDICARE, MEDICAID, SELFPAY ==
--- NOTE | 2023-08-04 09:22 | CT_ITS ---
FINAL REPORT CLINICAL HISTORY: near syncope/slurred speech, dizzy COMPARISON: None FINDINGS: Axial images of the head were obtained without contrast. Coronal and sagittal reformatted images were also obtained. This study was performed with techniques to keep radiation doses as low as reasonably achievable (ALARA). Individualized dose reduction techniques using automated exposure control or adjustment of mA and/or kV according to the patient's size were employed. There is generalized age-appropriate atrophy. Periventricular low-attenuation areas are seen consistent with mild chronic ischemic changes over other etiologies including demyelination. There is no evidence of intracranial hemorrhage or mass. There is no evidence of acute infarct. There is no evidence of shift of the midline structures. No skull abnormality is seen on the bone window images. IMPRESSION: Atrophy and mild periventricular chronic ischemic changes. No acute intracranial abnormality identified. Reviewed, Interpreted and Dictated by Lai Yarbrough III, MD Transcribed by Mayela Yen Authenticated and [facility]
[2023-08-04 09:53] LABS: Basophils # 0.1 K/mm3 (0-0.2); Basophils % 1.4 % (0.1-2.0); Eosinophils # 0.2 K/mm3 (0.0-0.4); Eosinophils % 2.6 % (0.1-12.0); Hematocrit 41.9 % (37.0-47.0); Hemoglobin 13.5 g/dL (12.2-16.2); Lymphocytes # 2.2 K/mm3 (0.7-4.5); Lymphocytes % 28.8 % (10-50); Mean Corpuscular HGB Conc 32.1 g/dL (31.8-35.4); Mean Corpuscular Hemoglobin 31.5 pg (27.0-31.2); Monocytes # 0.5 K/mm3 (0.1-1.0); Monocytes % 5.9 % (1.7-9.3); Neutrophils # 4.8 K/mm3 (1.8-7.8); Neutrophils % 61.3 % (37.0-80.0); Platelet Count 284 K/mm3 (142-424); Red Blood Count 4.27 M/mm3 (4.20-5.40); Red Cell Distribution Width 14.2 % (11.5-17.5); White Blood Count 7.8 K/mm3 (4.8-10.8)
[2023-08-04 11:00] LABS: Chloride 96 mmol/L (98-107)
[2023-08-04 11:01] LABS: Potassium 3.6 mmoL/L (3.5-5.1); Sodium 137 mmol/L (136-145)
[2023-08-04 11:03] LABS: Alanine Aminotransferase 33 U/L (12-78); Alkaline Phosphatase 110 U/L (38-126); Anion Gap 6.6 mEq/L (5-15); Aspartate Amino Transferase 31 U/L (14-36); Bilirubin,Direct 0.4 mg/dl (0.0-0.4); Bilirubin,Indirect 0.3 mg/dL (0.0-0.9); Bilirubin,Total 0.7 mg/dl (0.2-1.3); Bilirubin,Unconjugated 0.4 mg/dL (0.0-1.1); Blood Urea Nitrogen 22 mg/dl (7-17); Carbon Dioxide 38 mmol/L (22.0-30.0); Estimated Glomerular Filt Rate 55 ml/min (>60); GFR (African American) 66 ML/MIN (>60)
[2023-08-04 11:04] LABS: Albumin Level 3.8 g/dl (3.5-5.0); Calcium 9.4 mg/dl (8.4-10.2); Chol/HDL Ratio 2.5 (1-3.5); Cholesterol 205 mg/dl (140-200); Glucose 151 mg/dl (74-100); HDL Cholesterol 83 mg/dl (40-60); Magnesium 1.8 mg/dl (1.6-2.3); Total Protein,Serum 6.7 g/dl (6.3-8.2); Triglycerides 315 mg/dl (30-150); VLDL Cholesterol 63 mg/dL (0-40)
[2023-08-04 11:15] LABS: Direct LDL Cholesterol 88.13 mg/dL (100-129)
[2023-08-04 11:34] LABS: Thyroid Stimulating Hormone 2.65 uIU/mL (0.465-4.68)
== END 2023-08-04 23:59 | disposition home or self-care (01) ==
LOC: RAD 09:17
PROVIDERS: PCP Nurse Practitioner Family; Visit Provider Physician Assistant
DX: R55 Syncope and collapse (principal); R47.81 Slurred speech; I25.10 Atherosclerotic heart disease of native coronary artery without angina pectoris; R07.89 Other chest pain; R06.09 Other forms of dyspnea; R01.1 Cardiac murmur, unspecified; M54.9 Dorsalgia, unspecified; R60.9 Edema, unspecified; E78.5 Hyperlipidemia, unspecified; E66.9 Obesity, unspecified; I10 Essential (primary) hypertension; G47.33 Obstructive sleep apnea (adult) (pediatric)
CPT/HCPCS: 36415; 70450; 80048; 80061; 80076; 83735; 84439; 84443; 85025

== ENCOUNTER 2023-08-24 11:43 | Outpatient (CLI) | payer MEDICARE, MEDICAID, SELFPAY ==
--- NOTE | 2023-08-24 11:43 | CA_ITS ---
APPROVED REPORT EXAM: Comprehensive 2D, Doppler, and color-flow Echocardiogram Supervisor Tellers: Roopa Zapata RDCS Ht: 5 ft 0 in Wt: 208lbs BSA: 1.90 BP: 130/82 mmHg Indications: SOA,CP,EDEMA,HTN M-Mode Dimensions RVDd 1.93 cm (0.9-2.6) LA Diam 3.51 cm (1.9-4.0) LVDd 4.71 cm (3.5-5.7) LVDs 3.38 cm (3.5-5.7) IVSd 0.68 cm (0.6-1.1) PWd 0.85 cm (0.6-1.1) EF (Teich) 54.50% FS 28.20% EDV (Teich) 102.90 mL ESV (Teich) 46.80 mL LV Diastology E Decel Time 337 (160-240 msec) E/A Ratio 0.8 Mitral Valve MV E Max Abdoulaye. 58.0 (40-130 cm/s) MV A Velocity 73.0 (40-130 cm/s) E/A Ratio 0.79 MV PHT 99.0 ms Left Ventricle The left ventricle is normal size. The left ventricular systolic function is normal. The left ventricular ejection fraction is within the normal range. There is increased LV wall thickness. There is normal LV segmental wall motion. LVEF is 55%. Transmitral Doppler flow pattern suggests impaired LV relaxation. Right Ventricle Right ventricle is mildly dilated. Right ventricle is mildly hypokinetic. Atria The left atrium size is normal. The right atrium size is normal. There is no Doppler evidence of interatrial shunt. Aortic Valve The aortic valve is mildly thickened. There is no aortic valvular stenosis. No aortic regurgitation is present. Mitral Valve Mild mitral annular calcification. The mitral valve leaflets are mildly thickened. No evidence of mitral valve stenosis. Mild mitral regurgitation. Tricuspid Valve The tricuspid valve leaflets are thin and pliable. Trace tricuspid regurgitation. There is insufficient TR jet to estimate RVSP. Pulmonic Valve The pulmonary valve is normal in structure. Mild pulmonic regurgitation. Great Vessels The aortic root is normal in size. The ascending aorta is normal in size. IVC is normal in size and collapses >50% with inspiration. Pericardium There is no pericardial effusion. Other Information Study Quality: Fair Conclusion Normal LV systolic function. Mild RV dilation with mild reduction in RV function. Mild MR. Electronically signed by : Vicky Lockett MD 08/29/2023 00:40:04
== END 2023-08-24 23:59 | disposition home or self-care (01) ==
LOC: RT 11:43
PROVIDERS: PCP Nurse Practitioner Family; Visit Provider Physician Assistant
DX: R06.00 Dyspnea, unspecified (principal); R07.89 Other chest pain; R01.1 Cardiac murmur, unspecified; E78.5 Hyperlipidemia, unspecified; G47.33 Obstructive sleep apnea (adult) (pediatric); E66.9 Obesity, unspecified; Z68.36 Body mass index [BMI] 36.0-36.9, adult
CPT/HCPCS: 93306

== ENCOUNTER 2023-09-03 07:33 | Outpatient (CLI) | payer MEDICARE, MEDICAID, SELFPAY ==
[2023-09-03 08:33] LABS: NT Pro Brain Natriuretic Pep. 151 pg/mL (0-125)
== END 2023-09-03 23:59 | disposition home or self-care (01) ==
LOC: LAB 07:35
PROVIDERS: PCP Nurse Practitioner Family; Visit Provider Physician Assistant
DX: R06.00 Dyspnea, unspecified (principal)
CPT/HCPCS: 36415; 83880

== ENCOUNTER 2023-09-22 10:15 | Outpatient (CLI) | payer MEDICARE, MEDICAID, SELFPAY ==
[2023-09-22 10:59] LABS: Chloride 104 mmol/L (98-107); Sodium 139 mmol/L (136-145)
[2023-09-22 11:00] LABS: Potassium 3.6 mmoL/L (3.5-5.1)
[2023-09-22 11:02] LABS: Blood Urea Nitrogen 18 mg/dl (7-17); Estimated Glomerular Filt Rate 55 ml/min (>60); GFR (African American) 66 ML/MIN (>60)
[2023-09-22 11:03] LABS: Anion Gap 7.6 mEq/L (5-15); Calcium 9.6 mg/dl (8.4-10.2); Carbon Dioxide 31 mmol/L (22.0-30.0); Glucose 121 mg/dl (74-100)
== END 2023-09-22 23:59 | disposition home or self-care (01) ==
LOC: LAB 10:17
PROVIDERS: PCP Nurse Practitioner Family; Visit Provider Nurse Practitioner Family
DX: R60.9 Edema, unspecified (principal); M54.9 Dorsalgia, unspecified; G89.29 Other chronic pain; I25.10 Atherosclerotic heart disease of native coronary artery without angina pectoris; R55 Syncope and collapse; R47.81 Slurred speech; R07.89 Other chest pain; R06.09 Other forms of dyspnea; R01.1 Cardiac murmur, unspecified; G47.33 Obstructive sleep apnea (adult) (pediatric); E78.5 Hyperlipidemia, unspecified; E66.9 Obesity, unspecified; I10 Essential (primary) hypertension
CPT/HCPCS: 36415; 80048

== ENCOUNTER 2023-10-12 13:19 | Outpatient (CLI) | payer MEDICARE, MEDICAID, SELFPAY ==
[2023-10-12 14:09] LABS: Hemoglobin A1C 6.2 % (4.0-6.0)
== END 2023-10-12 23:59 | disposition home or self-care (01) ==
LOC: LAB 13:21
PROVIDERS: PCP Nurse Practitioner Family; Visit Provider Nurse Practitioner Family
DX: R73.09 Other abnormal glucose (principal)
CPT/HCPCS: 36415; 83036

== ENCOUNTER 2024-07-08 10:18 | Outpatient (CLI) | payer MEDICARE, MEDICAID, SELFPAY ==
[2024-07-09 12:24] LABS: Chlamydia trachomatis Negative (Negative); Neisseria gonorrhoeae Negative (Negative); Trichomonas vaginalis Negative (Negative)
== END 2024-07-08 23:59 | disposition home or self-care (01) ==
PROVIDERS: PCP Family Medicine; Visit Provider Family Medicine
DX: N89.8 Other specified noninflammatory disorders of vagina (principal); N39.0 Urinary tract infection, site not specified; B96.20 Unspecified Escherichia coli [E. coli] as the cause of diseases classified elsewhere
CPT/HCPCS: 87086; 87088; 87186; 87210; 87491; 87591; 87661

== ENCOUNTER 2024-08-01 11:30 | Outpatient (CLI) | payer MEDICARE, MEDICAID, SELFPAY ==
[2024-08-01 12:26] LABS: Basophils # 0.1 K/mm3 (0-0.2); Basophils % 1.4 % (0.1-2.0); Eosinophils # 0.1 Kmm3 (0.0-0.4); Eosinophils % 1.5 % (0.1-12.0); Hematocrit 40.9 % (37.0-47.0); Hemoglobin 13.1 g/dL (12.2-16.2); Immature Granulocytes # 0.02 10^3uL; Immature Granulocytes % 0.2 %; Lymphocytes # 3.2 K/mm3 (0.7-4.5); Lymphocytes % 35.6 % (10-50); Mean Corpuscular Hemoglobin 30.3 pg (27.0-31.2); Mean Corpuscular Volume 94.7 fl (81-99); Mean Platelet Volume 10.7 fl (7.4-10.4); Monocytes # 0.7 K/mm3 (0.1-1.0); Monocytes % 8.2 % (1.7-9.3); Neutrophils # 4.8 K/mm3 (1.8-7.8); Neutrophils % 53.1 % (37.0-80.0); Nucleated Red Blood Cells # 0 10^3/uL; Nucleated Red Blood Cells % 0 %; Platelet Count 309 K/mm3 (142-424); Red Blood Count 4.32 M/mm3 (4.20-5.40); Red Cell Distribution Width 13.4 % (11.5-17.5); Red Cell Distribution Width-SD 46.2 fL; White Blood Count 9.1 K/mm3 (4.8-10.8)
[2024-08-01 13:01] LABS: Alanine Aminotransferase 19 U/L (12-78); Albumin Level 4.4 g/dl (3.5-5.0); Alkaline Phosphatase 109 U/L (38-126); Anion Gap 5.8 mEq/L (5-15); Aspartate Amino Transferase 20 U/L (14-36); Bilirubin,Direct 0.2 mg/dl (0.0-0.4); Bilirubin,Indirect 0.7 mg/dL (0.0-0.9); Bilirubin,Total 0.9 mg/dl (0.2-1.3); Bilirubin,Unconjugated 0.7 mg/dL (0.0-1.1); Blood Urea Nitrogen 18 mg/dl (7-17); Carbon Dioxide 30 mmol/L (22.0-30.0); Chloride 104 mmol/L (98-107); Chol/HDL Ratio 2.3 (1-3.5); Cholesterol 118 mg/dl (140-200); Estimated Glomerular Filt Rate 44 ml/min (>60); GFR (African American) 53 ML/MIN (>60); Glucose 96 mg/dl (74-100); HDL Cholesterol 52 mg/dl (40-60); Potassium 3.8 mmoL/L (3.5-5.1); Sodium 136 mmol/L (136-145); Total Protein,Serum 6.7 g/dl (6.3-8.2); Triglycerides 151 mg/dl (30-150); VLDL Cholesterol 30 mg/dL (0-40)
[2024-08-01 13:13] LABS: Direct LDL Cholesterol 43.84 mg/dL (100-129)
[2024-08-01 13:31] LABS: Free T4 (Free Thyroxine) 1.04 ng/dl (0.78-2.19)
[2024-08-01 13:32] LABS: Thyroid Stimulating Hormone 1.06 uIU/mL (0.465-4.68)
[2024-08-01 15:47] LABS: Hemoglobin A1C 5.3 % (4.0-6.0)
== END 2024-08-01 23:59 | disposition home or self-care (01) ==
LOC: LAB 11:31
PROVIDERS: PCP Nurse Practitioner Family; Visit Provider Nurse Practitioner Family
DX: I25.10 Atherosclerotic heart disease of native coronary artery without angina pectoris (principal); E11.9 Type 2 diabetes mellitus without complications; I10 Essential (primary) hypertension; E78.5 Hyperlipidemia, unspecified; E55.9 Vitamin D deficiency, unspecified
CPT/HCPCS: 36415; 80048; 80061; 80076; 83036; 84439; 84443; 85025

== ENCOUNTER 2025-03-02 15:09 | Outpatient (CLI) | payer MEDICARE, MEDICAID, SELFPAY ==
--- NOTE | 2025-03-02 15:00 | MM_ITS ---
PROCEDURE INFORMATION: Exam: MG Bilateral Screening 3D Mammography Exam date and time: 03/02/2025 3:15 PM Age: 74 years old Clinical indication: Screening examination TECHNIQUE: Imaging protocol: Bilateral Screening tomosynthesis and 2D mammography including computer-aided detection (CAD) when performed. COMPARISON: MG MM DIG SCREENING MAMM BI W/CAD 08/28/2020 8:40 AM FINDINGS: MAMMOGRAPHY: Breast composition: There are scattered areas of fibroglandular density. Mass: No suspicious masses. Architectural distortion: None. Calcifications: No suspicious calcifications. Asymmetric density: None. Skin thickening: None. Axillary adenopathy: None. IMPRESSION: No mammographic evidence of malignancy. Annual screening is recommended unless otherwise clinically indicated. ASSESSMENT: BI-RADS Category 1: Negative.
== END 2025-03-02 23:59 | disposition home or self-care (01) ==
LOC: RAD 15:10
PROVIDERS: PCP Family Medicine; Visit Provider Family Medicine
DX: Z12.31 Encounter for screening mammogram for malignant neoplasm of breast (principal); R92.323 Mammographic fibroglandular density, bilateral breasts
CPT/HCPCS: 77063; 77067